=== PATIENT | female | born 1950 | race Caucasian/White ===

== ENCOUNTER 2016-10-21 12:49 | Emergency (ER) | payer SELFPAY ==
[~2016-10-21] VITALS: Ht 154.9 cm; Wt 54.0 kg
[~2016-10-21 12:49] MED LIST: AMLO10TA2 PO; CEPH-460 PO; CLON0.2T PO; ENAL20TA PO; METO100T PO; MINO2.5T PO; OMEP40CA2 PO; PYRI200T4 PO
[2016-10-21 12:51] VITALS: BP 144/77; PULSE 55; RESP 12; TEMP 97.8; O2SAT 93
== END 2016-10-21 18:30 | disposition left against medical advice (07) ==
LOC: NED 12:49
DX: R68.89 Other general symptoms and signs (principal)
CPT/HCPCS: 99281

== ENCOUNTER 2016-11-19 19:16 | Emergency (ER) | payer SELFPAY ==
[~2016-11-19] VITALS: Ht 154.9 cm; Wt 58.6 kg
[2016-11-19 19:28] VITALS: BP 187/104; PULSE 58; RESP 16; TEMP 98.6; O2SAT 95
[2016-11-19 19:51] VITALS: BP 187/104; PULSE 58; RESP 16; TEMP 98.6; O2SAT 95
--- NOTE | 2016-11-19 20:17 | PD ---
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 The patient states that her catheters only fallen out once in the last year and a half. She will only except a 12 Malaysian catheter, she does not want a larger size and less we do not have a 12 Malaysian catheter available. A review of records reveals her catheter has fallen out approximately 5 times in the last 2 years. She has had other problems such as catheter replacement and catheter pain during those 2 years. PFSH Past Medical History Hx Anticoagulant Therapy: No Arthritis: Yes (RA) Blood Disorders: No Anxiety: No Depression: No Heart Rhythm Problems: No Cancer: Yes (LEFT BREAST) Cardiovascular Problems: No High Cholesterol: No Chemotherapy: No Chest Pain: Yes Congestive Heart Failure: No Cerebrovascular Accident: No Diabetes: No Diminished Hearing: No Diverticulitis: Yes Endocrine: No Genitourinary: Yes (KIDNEY) Headaches: No Hypertension: Yes Immune Disorder: No Musculoskeletal: Yes Neurologic: No Psychiatric: No Respiratory: No Immunizations Current: Yes Thyroid Disease: No Influenza Vaccination: No ?: Not Menopausal: Yes : 4 Para: 4 Miscarriage: 0 Tubal Ligation: Yes Past Surgical History Abdominal Surgery: Yes (POLYS REMOVED FROM COLON) AICD: No Cardiac Surgery: No Section: Yes (1984) Ear Surgery: No Endocrine Surgery: No Eye Surgery: No Genitourinary Surgery: Yes (CHAPA WITH LEG BAG) Gynecologic Surgery: Yes (C section ) Hysterectomy: No Joint Replacement: No Neurologic Surgery: No Oral Surgery: No Pacemaker: No Thoracic Surgery: Yes (LEFT BREAST LYMPHNODES REMOVED 2015) Other Surgery: Yes (POLYS REMOVED FROM COLON) Social History Alcohol Use: No Tobacco Use: Yes Substance Use: No Allergies-Medications (Allergen,Severity, Reaction): Coded Allergies: Tetracycline (Verified Allergy, Severe, severe nausea and vomiting, 10/21/16 ) Erythromycin (Verified Allergy, Intermediate, Nausea/Vomiting, 10/21/16) Uncoded Allergies: steroids (Allergy, Unknown, 02/28/16) Reported Meds & Prescriptions Reported Meds & Active Scripts Active Pyridium (Phenazopyridine HCl) 200 Mg Tab 200 Mg PO Q8H PRN Keflex (Cephalexin) 500 Mg Cap 500 Mg PO Q12H 10 Days Reported Metoprolol Tartrate 100 Mg Tab 100 Mg PO BID Enalapril (Enalapril Maleate) 20 Mg Tab 20 Mg PO BID Minoxidil 2.5 Mg Tab 2.5 Mg PO DAILY Clonidine (Clonidine HCl) 0.2 Mg Tab 0.2 Mg PO TID Amlodipine (Amlodipine Besylate) 10 Mg Tab 10 Mg PO DAILY Omeprazole 40 Mg Cap 40 Mg PO DAILY Review of Systems Except as stated in HPI: all other systems reviewed are Neg Physical Exam Narrative GENERAL: Well-nourished, well-developed patient in slight apparent distress with her bladder distention. Her vital signs show blood pressure 187/104 and heart rate 58 but otherwise normal. SKIN: Warm and dry. HEAD: Normocephalic. EYES: No scleral icterus. No injection or drainage. NECK: Supple, trachea midline. No JVD or lymphadenopathy. CARDIOVASCULAR: Regular rate and rhythm without murmurs, gallops, or rubs. RESPIRATORY: Breath sounds equal bilaterally. No accessory muscle use. GASTROINTESTINAL: Abdomen soft, with slight distention over the bladder but otherwise the abdomen is nondistended. No guarding or rebound is present. MUSCULOSKELETAL: No cyanosis, or edema. BACK: Nontender without obvious deformity. No CVA tenderness. Data Data Last Documented VS Vital Signs Date Time Temp Pulse Resp B/P Pulse Ox O2 Delivery O2 Flow Rate FiO2 11/19/16 19:51 98.6 58 16 187/104 95 MDM Medical Decision Making Medical Screen Exam Complete: Yes Emergency Medical Condition: Yes Medical Record Reviewed: Yes Differential Diagnosis Chapa catheter fell out and needs to be replaced. Catheter size too small, intentional removal of Chapa catheter for attention seeking Narrative Course We try to find a 12 Malaysian Chapa catheter but we were unable to find one. We found a 14 Malaysian Chapa catheter. If the patient finds this too uncomfortable she should go to [facility] where they do have 12 Malaysian Chapa catheters. The patient has been here 5 times with the same story of straining for bowel movement. She does not want a larger catheter if she can help but because they are painful. The catheter size is probably too small. We tried to find a 12 Malaysian catheter but none were available here. If she finds this catheter too uncomfortable, she should go to [facility] where they do have size 12 catheters. Diagnosis Primary Impression: Encounter for replacement of urinary catheter Additional Instructions: If this size 14 catheter is too large, go to [facility] where they have size 12 Chapa catheters. Disposition: 01 DISCHARGE HOME Condition: Stable Ranjith Rizzo MD Nov 19, 2016 20:17
[2016-11-19 20:58] VITALS: BP 212/126
[2016-11-19 21:22] LABS: BLOOD, URINE TRACE (NEG); GLUCOSE,URINE NEG (NEG); KETONE, URINE NEG (NEG); PH, URINE 7.5 (5.0-8.5)
[2016-11-19 21:37] LABS: NITRITE,URINE POS (NEG)
[2016-11-19 21:49] LABS: URINE COLOR YELLOW (YELLW/STRAW)
[2016-11-19 21:52] LABS: COMMENT (UR) CULT NOT INDICATED; CULTURE IF INDICATED CULT NOT INDICATED; RBC, URINE 0-3 /hpf (0-3); SQUAMOUS EPITHELIAL CELL URINE 0-5 /hpf (0-5); WBC, URINE 0-2 /hpf (0-5)
== END 2016-11-19 22:35 | disposition home or self-care (01) ==
LOC: PHED 19:16
DX: Z46.82 Encounter for fitting and adjustment of non-vascular catheter (principal); I10 Essential (primary) hypertension; F17.210 Nicotine dependence, cigarettes, uncomplicated
CPT/HCPCS: 51702; 81001

== ENCOUNTER 2016-11-25 07:42 | Emergency (ER) | payer SELFPAY ==
[~2016-11-25] VITALS: Ht 154.9 cm; Wt 55.0 kg
[~2016-11-25 07:42] MED LIST changes: -CEPH-460 PO
[2016-11-25 07:45] VITALS: BP 198/82; PULSE 92; RESP 17; TEMP 97.6; O2SAT 97
--- NOTE | 2016-11-25 08:13 | PD ---
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 The patient has a history of urinary retention and has a chronic indwelling Chapa catheter that is attached leg bag. The patient is followed by her urologist, Dr. Yee, and was advised to have a suprapubic catheter placed. However, the patient continues to have a Chapa catheter inserted through the urethra, states she has a size 14 Chapa catheter now and when she had a bowel movement earlier today she had some irritation. The patient does state she's had a Chapa catheter "fall out "approximately 5 times over the last 2 years during bowel movements when she is constipated. The patient states she has small amount of bleeding from around the urethral site while wiping earlier today. She does complain of pain at the Chapa catheter site. However, she does note the Chapa catheter continues to drain, but is requesting the Chapa catheter be placed and is requesting pain medications. PFSH Past Medical History Hx Anticoagulant Therapy: No Arthritis: Yes (RA) Blood Disorders: No Anxiety: No Depression: No Heart Rhythm Problems: No Cancer: Yes (LEFT BREAST) Cardiovascular Problems: Yes High Cholesterol: No Chemotherapy: No Chest Pain: Yes Congestive Heart Failure: No Cerebrovascular Accident: No Diabetes: No Diminished Hearing: No Diverticulitis: Yes Endocrine: No Genitourinary: Yes (KIDNEY) Headaches: No Hypertension: Yes Immune Disorder: No Musculoskeletal: Yes Neurologic: No Psychiatric: No Respiratory: No Immunizations Current: Yes Thyroid Disease: No ?: Not Menopausal: Yes : 4 Para: 4 Miscarriage: 0 Tubal Ligation: Yes Past Surgical History Abdominal Surgery: Yes (POLYS REMOVED FROM COLON) AICD: No Cardiac Surgery: No Section: Yes (1984) Ear Surgery: No Endocrine Surgery: No Eye Surgery: No Genitourinary Surgery: Yes (CHAPA WITH LEG BAG) Gynecologic Surgery: Yes (C section ) Hysterectomy: No Joint Replacement: No Neurologic Surgery: No Oral Surgery: No Pacemaker: No Thoracic Surgery: Yes (LEFT BREAST LYMPHNODES REMOVED 2015) Other Surgery: Yes (POLYS REMOVED FROM COLON) Social History Alcohol Use: No Tobacco Use: Yes Substance Use: No Allergies-Medications (Allergen,Severity, Reaction): Coded Allergies: Tetracycline (Verified Allergy, Severe, severe nausea and vomiting, ) Erythromycin (Verified Allergy, Intermediate, Nausea/Vomiting, 11/25/16) Uncoded Allergies: steroids (Allergy, Unknown, 02/28/16) Reported Meds & Prescriptions Reported Meds & Active Scripts Active Pyridium (Phenazopyridine HCl) 200 Mg Tab 200 Mg PO Q8H PRN Reported Metoprolol Tartrate 100 Mg Tab 100 Mg PO BID Enalapril (Enalapril Maleate) 20 Mg Tab 20 Mg PO BID Minoxidil 2.5 Mg Tab 2.5 Mg PO DAILY Clonidine (Clonidine HCl) 0.2 Mg Tab 0.2 Mg PO TID Amlodipine (Amlodipine Besylate) 10 Mg Tab 10 Mg PO DAILY Omeprazole 40 Mg Cap 40 Mg PO DAILY Review of Systems Except as stated in HPI: all other systems reviewed are Neg General / Constitutional: No: Fever Gastrointestinal: No: Nausea, Vomiting, Abdominal Pain Genitourinary: Positive: Other (as noted in history of present illness) Skin: No Rash, No Itching Physical Exam Narrative GENERAL: Awake, alert, nontoxic-appearing 66-year-old female who appears her stated age and is in no acute respiratory distress. The patient is lying supine with no distress. SKIN: Warm and dry. HEAD: Atraumatic. Normocephalic. EYES: No injection or drainage. ENT: No nasal bleeding or discharge. Mucous membranes pink and moist. NECK: Trachea midline. No JVD. GASTROINTESTINAL: Abdomen soft, non-tender, nondistended. No rebound tenderness. Genitourinary: The exam was performed in the presence of a female nurse, Jennifer. Chapa catheter is in place, there is no visible bleeding from around the urethral site. MUSCULOSKELETAL: No obvious deformities. No clubbing. No cyanosis. No edema. NEUROLOGICAL: Awake and alert. No obvious cranial nerve deficits. Motor grossly within normal limits. Normal speech. PSYCHIATRIC: Appropriate mood and affect; insight and judgment normal. Data Data Last Documented VS Vital Signs Date Time Temp Pulse Resp B/P Pulse Ox O2 Delivery O2 Flow Rate FiO2 11/25/16 07:45 97.6 92 17 198/82 97 Orders Urinary Catheter - Remove (11/25/16 08:05) Urinary Catheter Insert/Apply (11/25/16 08:05) Urinalysis - C+S If Indicated (11/25/16 08:05) Acetamin-Hydrocod 325-5 Mg ([place] 5-325 (11/25/16 08:15) Urine Culture (11/25/16 08:53) Labs Laboratory Tests Test 11/25/16 08:53 Urine Color YELLOW Urine Turbidity HAZY Urine pH 6.5 Urine Specific [place] 1.013 Urine Protein NEG mg/dL Urine Glucose (UA) NEG mg/dL Urine Ketones NEG mg/dL Urine Occult Blood TRACE Urine Nitrite NEG Urine Bilirubin NEG Urine Urobilinogen LESS THAN 2.0 MG/DL Urine Leukocyte Esterase LARGE Urine RBC 14 /hpf Urine WBC 12 /hpf Urine Squamous Epithelial 4 /hpf Cells Urine Transitional Epithelial <1 /hpf Cells Urine Bacteria RARE /hpf Urine Mucus FEW /lpf Microscopic Urinalysis Comment CATH-CULTURE IND [facility] Medical Decision Making Medical Screen Exam Complete: Yes Emergency Medical Condition: Yes Medical Record Reviewed: Yes Interpretation(s) Laboratory Tests Test 11/25/16 08:53 Urine Color YELLOW Urine Turbidity HAZY Urine pH 6.5 Urine Specific [place] 1.013 Urine Protein NEG mg/dL Urine Glucose (UA) NEG mg/dL Urine Ketones NEG mg/dL Urine Occult Blood TRACE Urine Nitrite NEG Urine Bilirubin NEG Urine Urobilinogen LESS THAN 2.0 MG/DL Urine Leukocyte Esterase LARGE Urine RBC 14 /hpf Urine WBC 12 /hpf Urine Squamous Epithelial 4 /hpf Cells Urine Transitional Epithelial <1 /hpf Cells Urine Bacteria RARE /hpf Urine Mucus FEW /lpf Microscopic Urinalysis Comment CATH-CULTURE IND Differential Diagnosis Differential diagnosis includes Chapa catheter malfunction, bladder prolapse, chronic urinary retention, UTI. Narrative Course The patient's Chapa catheter was removed and replaced with a size 14 Chapa catheter. The patient was administered [place] 5 mg/325 mg 2 for pain. UA was sent to lab from new Chapa catheter. The patient's UA has RBCs and WBCs with bacteria, therefore, culture indicated. The patient will be placed on Bactrim. The patient is advised to follow-up with her urologist. Return if symptoms worsen or progress. Diagnosis Primary Impression: Malfunction of Chapa catheter Qualified Code: T83.011A - Malfunction of Chapa catheter, initial encounter Additional Impression: Cystitis Patient Instructions: General Instructions Additional Instructions: Medications as directed. Follow-up with your primary physician and/or urologist. Return if symptoms worsen or progress. Med/Other Pt SpecificInfo: Prescription(s) given Scripts Hydrocodone-Acetaminophen ([place])5-325 mg Tab1 Tab PO Q6H PRN (PAIN) #12 TAB Ref 0 Prov:Jerry Barry MD 11/25/16 Sulfamethoxazole-Trimethoprim (Bactrim DS)800-160 Mg Tab1 Tab PO BID #14 TAB Ref 0 Prov:Jerry Barry MD 11/25/16 Disposition: 01 DISCHARGE HOME Condition: Stable Jerry Barry MD Nov 25, 2016 08:13
[2016-11-25] MEDS ORDERED: ACETAMINOPHEN/HYDROcodone 325 MG/5 MG TAB PO ONE (08:15)
[2016-11-25 09:15] LABS: BACTERIA, URINE RARE /hpf; BLOOD, URINE TRACE (NEG); GLUCOSE,URINE NEG (NEG); KETONE, URINE NEG (NEG); MUCUS URINE FEW /lpf (OCC); NITRITE,URINE NEG (NEG); PH, URINE 6.5 (5.0-8.5); SQUAMOUS EPITHELIAL CELL URINE 4 /hpf (0-5); TRANSITIONAL EPI CELLS, URINE <1 /hpf; URINE COLOR YELLOW (YELLW/STRAW)
[2016-11-25 09:17] LABS: COMMENT (UR) CATH-CULTURE IND; CULTURE IF INDICATED CATH CULTURE IND
[2016-11-25] MEDS ORDERED: NORC5TAB PO (09:20)
[2016-11-25] MEDS ORDERED: BACT800T5 PO (09:20)
[2016-11-25] MEDS ORDERED: CEPH-460 PO (09:23)
== END 2016-11-25 10:26 | disposition home or self-care (01) ==
LOC: NEPC 07:42
DX: T83.091A Other mechanical complication of indwelling urethral catheter, initial encounter (principal); N30.80 Other cystitis without hematuria; B96.89 Other specified bacterial agents as the cause of diseases classified elsewhere; I10 Essential (primary) hypertension
CPT/HCPCS: 51702; 81001; 87077; 87086; 87186

== ENCOUNTER 2017-02-01 10:26 | Emergency (ER) | payer SELFPAY ==
[~2017-02-01] VITALS: Ht 154.9 cm; Wt 54.5 kg
[~2017-02-01 10:26] MED LIST changes: +BACT800T5 PO; +CEPH-460 PO; +NORC5TAB PO
[2017-02-01 10:28] VITALS: BP 160/76; PULSE 50; RESP 24; TEMP 97.9; O2SAT 96
[2017-02-01] MEDS ORDERED: ACETAMINOPHEN/HYDROcodone 325 MG/5 MG TAB PO ONE (10:45)
--- NOTE | 2017-02-01 10:48 | PD ---
HPI Chief Complaint: Medical Clearance Time Seen by Provider: 10:41 Travel History International Travel<30 days: No Contact w/Intl Traveler<30days: No Traveled to known affect area: No History of Present Illness HPI 66-year-old female here for Chapa catheter evaluation. The patient reports that she believes her catheter is blocked, and has not put out urine in the last 4-5 hours. She has history of urinary retention has a chronic indwelling Chapa catheter/leg bag. She is complaining of suprapubic abdominal discomfort. She states that this has happened several times in the past and is requesting that we change her Chapa. PFSH Past Medical History Hx Anticoagulant Therapy: No Arthritis: Yes (RA) Blood Disorders: No Anxiety: No Depression: No Heart Rhythm Problems: No Cancer: Yes (LEFT BREAST) Cardiovascular Problems: Yes (HTN) High Cholesterol: No Chemotherapy: Yes Chest Pain: Yes Congestive Heart Failure: No Cerebrovascular Accident: No Diabetes: No Diminished Hearing: No Diverticulitis: Yes Endocrine: No Genitourinary: Yes (KIDNEY, NOT ABLE TO URINATE) Headaches: No Hypertension: Yes Immune Disorder: No Musculoskeletal: Yes Neurologic: No Psychiatric: No Respiratory: No Immunizations Current: Yes Thyroid Disease: No Menopausal: Yes : 4 Para: 4 Miscarriage: 0 Tubal Ligation: Yes Past Surgical History Abdominal Surgery: Yes (POLYS REMOVED FROM COLON) AICD: No Cardiac Surgery: No Section: Yes (1984) Ear Surgery: No Endocrine Surgery: No Eye Surgery: No Genitourinary Surgery: Yes (CHAPA WITH LEG BAG) Gynecologic Surgery: Yes (C section ) Hysterectomy: No Joint Replacement: No Neurologic Surgery: No Oral Surgery: No Pacemaker: No Thoracic Surgery: Yes (LEFT BREAST LYMPHNODES REMOVED 2015) Other Surgery: Yes (POLYS REMOVED FROM COLON, PORT PLACEMENT ) Social History Alcohol Use: No Tobacco Use: Yes Substance Use: No Allergies-Medications (Allergen,Severity, Reaction): Coded Allergies: Tetracycline (Verified Adverse Reaction, Severe, severe nausea and vomiting, 02/01/17) Erythromycin (Verified Adverse Reaction, Intermediate, Nausea/Vomiting, ) Uncoded Allergies: steroids (Allergy, Unknown, 02/28/16) Reported Meds & Prescriptions Reported Meds & Active Scripts Active Pyridium (Phenazopyridine HCl) 200 Mg Tab 200 Mg PO Q8H PRN Reported Metoprolol Tartrate 100 Mg Tab 100 Mg PO BID Enalapril (Enalapril Maleate) 20 Mg Tab 20 Mg PO BID Minoxidil 2.5 Mg Tab 2.5 Mg PO DAILY Clonidine (Clonidine HCl) 0.2 Mg Tab 0.2 Mg PO TID Amlodipine (Amlodipine Besylate) 10 Mg Tab 10 Mg PO DAILY Omeprazole 40 Mg Cap 40 Mg PO DAILY Review of Systems Except as stated in HPI: all other systems reviewed are Neg Physical Exam Narrative GENERAL: Well-developed, well-nourished, moderate distress secondary to pain. SKIN: Focused skin assessment warm/dry. HEAD: Atraumatic. Normocephalic. EYES: Pupils equal and round. No scleral icterus. No injection or drainage. ENT: Mucous membranes pink and moist. CARDIOVASCULAR: Regular rate and rhythm. RESPIRATORY: No accessory muscle use. Clear to auscultation. Breath sounds equal bilaterally. GASTROINTESTINAL: Abdomen soft, nondistended. Palpable distended bladder with suprapubic tenderness. No peritoneal signs. MUSCULOSKELETAL: No obvious deformities. No clubbing. No cyanosis. No edema. NEUROLOGICAL: Awake and alert. No obvious cranial nerve deficits. Motor grossly within normal limits. Normal speech. PSYCHIATRIC: Appropriate mood and affect; insight and judgment normal. Data Data Last Documented VS Vital Signs Date Time Temp Pulse Resp B/P Pulse Ox O2 Delivery O2 Flow Rate FiO2 02/01/17 10:28 97.9 50 24 160/76 96 Room Air Orders Urinary Catheter - Remove (02/01/17 10:45) Urinary Catheter Insert/Apply (02/01/17 10:45) Acetamin-Hydrocod 325-5 Mg ([place] 5-325 (02/01/17 10:45) Urinalysis - C+S If Indicated (02/01/17 11:02) [facility] Medical Decision Making Medical Screen Exam Complete: Yes Emergency Medical Condition: Yes Differential Diagnosis Chapa catheter obstruction, UTI Narrative Course Chapa catheter placed with over 400 cc of clear urine output. Patient experienced immediate relief of symptoms, and is very thankful. She tells me that she has a burning sensation in her bladder and believe she may have an infection. Chart review shows that the last time the patient was here her urine grew out Enterobacter aerogenes that was sensitive to Cipro. I will start her on Cipro today. PMD/urology follow-up this week. She is stable for discharge home. She was informed on when to return to the emergency department. She verbalizes understanding and agreement with plan. Diagnosis Primary Impression: Malfunction of Chapa catheter Qualified Code: T83.011A - Malfunction of Chapa catheter, initial encounter Referrals: Primary Care Physician 3 days Urologist 3 days Additional Instructions: Follow-up with your primary care physician this week. Follow-up with your urologist this week. Return to the emergency department for worsening symptoms or any other concerns. Scripts Ciprofloxacin (Cipro)500 Mg Tcf044 Mg PO BID 7 Days Ref 0 Prov:Darvin Barreto MD 02/01/17 Disposition: DISCHARGE HOME Condition: Stable Darvin Barreto MD February 01, 2017 10:48
[2017-02-01] MEDS ORDERED: CIPR-9 PO (11:10)
[2017-02-01 11:14] VITALS: BP 150/77; TEMP 97.8
[2017-02-01 11:25] LABS: BLOOD, URINE NEG (NEG); GLUCOSE,URINE NEG (NEG); KETONE, URINE NEG (NEG); MUCUS URINE FEW /lpf (OCC); NITRITE,URINE NEG (NEG); PH, URINE 7.5 (5.0-8.5); SQUAMOUS EPITHELIAL CELL URINE <1 /hpf (0-5); TRANSITIONAL EPI CELLS, URINE <1 /hpf; URINE COLOR YELLOW (YELLW/STRAW)
[2017-02-01 11:26] LABS: COMMENT (UR) CULT NOT INDICATED; CULTURE IF INDICATED CULT NOT INDICATED
== END 2017-02-01 11:14 | disposition home or self-care (01) ==
LOC: NEPD 10:26
DX: T83.011A Breakdown (mechanical) of indwelling urethral catheter, initial encounter (principal); I10 Essential (primary) hypertension; M06.9 Rheumatoid arthritis, unspecified
CPT/HCPCS: 51702; 81001

== ENCOUNTER 2017-02-01 22:17 | Emergency (ER) | payer SELFPAY ==
[~2017-02-01 22:17] MED LIST changes: +CIPR-9 PO
[2017-02-01 22:18] VITALS: BP 183/84; PULSE 58; RESP 18; TEMP 98; O2SAT 98
--- NOTE | 2017-02-02 00:47 | PD ---
HPI Chief Complaint: Complaint Time Seen by Provider: 00:46 Travel History International Travel<30 days: No Contact w/Intl Traveler<30days: No Traveled to known affect area: No History of Present Illness HPI 66-year-old female with history of long-term indwelling Chapa catheter, presents today for Chapa catheter placement. Patient was seen earlier today and her Chapa catheter was changed. She was started on oral antibiotic for UTI. Patient states when she got home she believes the Chapa was too tight and she moved incorrectly, pulling the Chapa catheter out. The balloon was not inflated on the distal aspect of the tube. Patient denies any pain. States she had a small amount of blood from her urethra when this happened. She has no other symptoms to report this time. PFSH Past Medical History Hx Anticoagulant Therapy: No Arthritis: Yes (RA) Blood Disorders: No Anxiety: No Depression: No Heart Rhythm Problems: No Cancer: Yes (LEFT BREAST) Cardiovascular Problems: Yes (htn) High Cholesterol: No Chemotherapy: Yes Chest Pain: Yes Congestive Heart Failure: No Cerebrovascular Accident: No Diabetes: No Diminished Hearing: No Diverticulitis: Yes Endocrine: No Genitourinary: Yes (KIDNEY, NOT ABLE TO URINATE) Headaches: No Hypertension: Yes Immune Disorder: No Musculoskeletal: Yes Neurologic: No Psychiatric: No Respiratory: No Immunizations Current: Yes Thyroid Disease: No ?: Not Menopausal: Yes : 4 Para: 4 Miscarriage: 0 Tubal Ligation: Yes Past Surgical History Abdominal Surgery: Yes (POLYS REMOVED FROM COLON) AICD: No Cardiac Surgery: No Section: Yes (1984) Ear Surgery: No Endocrine Surgery: No Eye Surgery: No Genitourinary Surgery: Yes (CHAPA WITH LEG BAG) Gynecologic Surgery: Yes (C section ) Hysterectomy: No Joint Replacement: No Neurologic Surgery: No Oral Surgery: No Pacemaker: No Thoracic Surgery: Yes (LEFT BREAST LYMPHNODES REMOVED 2015) Other Surgery: Yes (POLYS REMOVED FROM COLON, PORT PLACEMENT ) Social History Alcohol Use: No Tobacco Use: Yes (OCASSIONALLY ) Substance Use: No Allergies-Medications (Allergen,Severity, Reaction): Coded Allergies: Tetracycline (Verified Adverse Reaction, Severe, severe nausea and vomiting, 02/01/17) Erythromycin (Verified Adverse Reaction, Intermediate, Nausea/Vomiting, ) Uncoded Allergies: steroids (Allergy, Unknown, 02/28/16) Reported Meds & Prescriptions Reported Meds & Active Scripts Active Cipro (Ciprofloxacin HCl) 500 Mg Tab 500 Mg PO BID 7 Days Pyridium (Phenazopyridine HCl) 200 Mg Tab 200 Mg PO Q8H PRN Reported Metoprolol Tartrate 100 Mg Tab 100 Mg PO BID Enalapril (Enalapril Maleate) 20 Mg Tab 20 Mg PO BID Minoxidil 2.5 Mg Tab 2.5 Mg PO DAILY Clonidine (Clonidine HCl) 0.2 Mg Tab 0.2 Mg PO TID Amlodipine (Amlodipine Besylate) 10 Mg Tab 10 Mg PO DAILY Omeprazole 40 Mg Cap 40 Mg PO DAILY Review of Systems Except as stated in HPI: all other systems reviewed are Neg Physical Exam Narrative GENERAL: Well-nourished, well-developed female patient in acute distress SKIN: Focused skin assessment warm/dry. HEAD: Normocephalic. EYES: No scleral icterus. No injection or drainage. NECK: Supple, trachea midline. No JVD or lymphadenopathy. CARDIOVASCULAR: Regular rate and rhythm without murmurs, gallops, or rubs. RESPIRATORY: Breath sounds equal bilaterally. No accessory muscle use. GASTROINTESTINAL: Abdomen soft, non-tender, nondistended. MUSCULOSKELETAL: No cyanosis, or edema. BACK: Nontender without obvious deformity. No CVA tenderness. Data Data Last Documented VS Vital Signs Date Time Temp Pulse Resp B/P Pulse Ox O2 Delivery O2 Flow Rate FiO2 02/01/17 22:18 98.0 58 18 183/84 98 Room Air Orders Urinary Catheter Management [id number] (02/02/17 00:34) MDM Medical Decision Making Medical Screen Exam Complete: Yes Emergency Medical Condition: Yes Medical Record Reviewed: Yes Differential Diagnosis Urinary retention versus obstruction versus malfunctioning Chapa catheter Narrative Course 66 year female presents to emergency department for a Chapa catheter to be placed. Patient appears without distress. Abrasion was already seen earlier today, trachea and is undergoing treatment for UTI. A new catheter is placed and patient states that she has follow-up with Dr. Baker, her urologist. She agrees to return immediately with any acute worsening of symptoms. Diagnosis Primary Impression: Malfunction of Chapa catheter Qualified Code: T83.011D - Malfunction of Chapa catheter, subsequent encounter Additional Impression: Urine retention Referrals: Vinay Baker DO Patient Instructions: Chapa Catheter Placement and Care (ED), General Instructions Additional Instructions: Follow-up with Dr. Baker Continue medication as prescribed and her previous visit today. Return immediately with any acute worsening of symptoms Med/Other Pt SpecificInfo: No Change to Meds Disposition: 01 DISCHARGE HOME Condition: Stable Myrna Montalvo February 02, 2017 00:47
== END 2017-02-02 01:37 | disposition home or self-care (01) ==
LOC: NEPK 22:17
DX: T83.011D Breakdown (mechanical) of indwelling urethral catheter, subsequent encounter (principal); R33.9 Retention of urine, unspecified; N39.0 Urinary tract infection, site not specified
CPT/HCPCS: 51702

== ENCOUNTER 2017-02-16 19:00 | Emergency (ER) | payer SELFPAY ==
[~2017-02-16] VITALS: Ht 167.6 cm; Wt 66.0 kg
[~2017-02-16 19:00] MED LIST changes: -BACT800T5 PO; -CEPH-460 PO; -NORC5TAB PO
[2017-02-16 19:05] VITALS: BP 145/66; PULSE 55; RESP 16; TEMP 98.4; O2SAT 98
--- NOTE | 2017-02-16 21:57 | PD ---
HPI Chief Complaint: Complaint Time Seen by Provider: 21:46 Travel History International Travel<30 days: No Contact w/Intl Traveler<30days: No Traveled to known affect area: No History of Present Illness HPI The patient is a 66 year old female who presents to the [facility] emergency department with a history of difficulty urinating for the last 5 hours. The patient has a chronic indwelling Chapa catheter that is been in place for a partially 2 years related to urinary retention. She reports that she is followed by Dr. Yee for this. He has recommended suprapubic catheter placement, however the patient reports that she is waiting until she is approved for Medicare. The patient reports that she has since yesterday been experiencing dysuria with irritation around the urethra. She reports that yesterday she noted some bleeding around the urethra. She is concerned that she may have a urinary tract infection. Incidentally on review of systems she does report that she's had diarrhea for the last 2 weeks. She reports that she intermittently will have diarrhea sometimes up to 7 times per day. She denies having any blood in her stool or mucus in her stool. The patient denies any recent fevers, cough, congestion, neck pain, chest pain, shortness of breath, vomiting, or neurologic symptoms. PFSH Past Medical History Narrative Medical The patient's past medical history is significant for urinary retention, rheumatoid arthritis, history of left breast cancer, hypertension, diverticulitis. Hx Anticoagulant Therapy: No Arthritis: Yes (RA) Blood Disorders: No Anxiety: No Depression: No Heart Rhythm Problems: No Cancer: Yes (LEFT BREAST) Cardiovascular Problems: Yes (htn) High Cholesterol: No Chemotherapy: Yes Chest Pain: Yes Congestive Heart Failure: No Cerebrovascular Accident: No Diabetes: No Diminished Hearing: No Diverticulitis: Yes Endocrine: No Genitourinary: Yes (KIDNEY, NOT ABLE TO URINATE) Headaches: No Hypertension: Yes Immune Disorder: No Medical other: No Musculoskeletal: Yes Neurologic: No Psychiatric: No Respiratory: No Immunizations Current: Yes Thyroid Disease: No ?: Not Menopausal: Yes : 4 Para: 4 Miscarriage: 0 Tubal Ligation: Yes Past Surgical History Narrative Surgical The patient's past surgical history significant for polyps being removed from her colon, , left breast lymph nodes resection, Uufhfs-a-Lyhn placement. Abdominal Surgery: Yes (POLYS REMOVED FROM COLON) AICD: No Cardiac Surgery: No Section: Yes (1984) Ear Surgery: No Endocrine Surgery: No Eye Surgery: No Genitourinary Surgery: Yes (CHAPA WITH LEG BAG) Gynecologic Surgery: Yes (C section ) Hysterectomy: No Joint Replacement: No Neurologic Surgery: No Oral Surgery: No Pacemaker: No Thoracic Surgery: Yes (LEFT BREAST LYMPHNODES REMOVED 2015) Other Surgery: Yes (POLYS REMOVED FROM COLON, PORT PLACEMENT ) Social History Alcohol Use: No Tobacco Use: Yes (four cigarettes per day) Substance Use: No Allergies-Medications (Allergen,Severity, Reaction): Coded Allergies: Tetracycline (Verified Adverse Reaction, Severe, severe nausea and vomiting, 02/01/17) Erythromycin (Verified Adverse Reaction, Intermediate, Nausea/Vomiting, ) Uncoded Allergies: steroids (Allergy, Unknown, 02/28/16) Reported Meds & Prescriptions Reported Meds & Active Scripts Active Cipro (Ciprofloxacin HCl) 500 Mg Tab 500 Mg PO BID 7 Days Pyridium (Phenazopyridine HCl) 200 Mg Tab 200 Mg PO Q8H PRN Reported Metoprolol Tartrate 100 Mg Tab 100 Mg PO BID Enalapril (Enalapril Maleate) 20 Mg Tab 20 Mg PO BID Minoxidil 2.5 Mg Tab 2.5 Mg PO DAILY Clonidine (Clonidine HCl) 0.2 Mg Tab 0.2 Mg PO TID Amlodipine (Amlodipine Besylate) 10 Mg Tab 10 Mg PO DAILY Omeprazole 40 Mg Cap 40 Mg PO DAILY Review of Systems Except as stated in HPI: all other systems reviewed are Neg General / Constitutional: No: Fever Eyes: No: Visual changes HENT: No: Headaches Cardiovascular: No: Chest Pain or Discomfort Respiratory: No: Shortness of Breath Gastrointestinal: Positive: Diarrhea, Abdominal Pain (suprapubic pressure), Changes in Bowel Habits, No: Nausea, Vomiting, Hematochezia, Constipation, Indigestion, Loss of Appetite Genitourinary: Positive: Urgency, Dysuria, Hematuria, Decreased Urinary Output Musculoskeletal: No: Pain Skin: No Rash Neurologic: No: Weakness Psychiatric: No: Depression Endocrine: No: Polydipsia Hematologic/Lymphatic: No: Easy Bruising Physical Exam Narrative General: The patient is a well-developed well-nourished female in no acute distress. Head and Neck exam: Head is normocephalic atraumatic. Eyes: EOMI, pupils are equal round and reactive to light. Nose: Midline septum with pink mucous membranes Mouth: Dentition unremarkable. Moist mucus membranes. Posterior oropharynx is not erythematous. No tonsillar hypertrophy. Uvula midline. Airway patent. Neck: No palpable lymphadenopathy. No nuchal rigidity. No thyromegaly. Cardiovascular: Regular rate and rhythm without murmurs, gallops, or rubs. Lungs: Clear to auscultation bilaterally. No wheezes, rhonchi, or rales. Abdomen: Soft, with tenderness on palpation in the suprapubic area without any suprapubic prominence noted. No other tenderness on palpation of the other quadrants of the abdomen. No guarding, rebound, or rigidity. Normal bowel sounds are audible. Negative [place] sign. Extremities: No clubbing or cyanosis. The patient has trace pedal edema bilateral lower extremities. 2+ pulses in all 4 extremities. No calf tenderness on palpation. Back: No spinous process tenderness to palpation. No costovertebral angle tenderness to palpation. Neurologic Exam: Grossly nonfocal. Skin Exam: No rash noted. Intact skin that is warm and dry. Data Data Last Documented VS Vital Signs Date Time Temp Pulse Resp B/P Pulse Ox O2 Delivery O2 Flow Rate FiO2 02/16/17 22:46 55 16 140/65 96 02/16/17 19:05 98.4 Room Air Orders Urinary Catheter Insert/Apply (02/16/17 21:49) Complete Blood Count With Diff (02/16/17 21:55) Basic Metabolic Panel (Bmp) (02/16/17 21:55) Urinalysis - C+S If Indicated (02/16/17 21:55) Magnesium (Mg) (02/16/17 21:55) Enteric Path (Stool) (02/16/17 21:55) C Diff Toxin Pcr (02/16/17 21:55) Iv Access Insert/Monitor (02/16/17 21:55) Ecg Monitoring (02/16/17 21:55) Oximetry (02/16/17 21:55) Stool Wbc (Leukocytes) (02/16/17 21:55) Labs Laboratory Tests Test 02/16/17 22:25 Urine Color YELLOW Urine Turbidity HAZY Urine pH 7.5 Urine Specific [place] 1.008 Urine Protein NEG mg/dL Urine Glucose (UA) NEG mg/dL Urine Ketones NEG mg/dL Urine Occult Blood NEG Urine Nitrite NEG Urine Bilirubin NEG Urine Urobilinogen LESS THAN 2.0 MG/DL Urine Leukocyte Esterase TRACE Urine RBC 4 /hpf Urine WBC 4 /hpf Urine Squamous Epithelial 1 /hpf Cells Urine Amorphous Sediment RARE Urine Hyaline Casts 1 /lpf Urine Mucus FEW /lpf Microscopic Urinalysis Comment CULT NOT INDICATED MDM Medical Decision Making Medical Screen Exam Complete: Yes Emergency Medical Condition: Yes Medical Record Reviewed: Yes Differential Diagnosis Urinary retention related to malfunctioning catheter, versus urinary tract infection, versus bladder spasm, versus gastroenteritis, versus C. difficile colitis Narrative Course During the course of the patients emergency department visit, the patients history, examination, and differential diagnosis were reviewed with the patient. The patient had IV access obtained and blood work sent for analysis. The patient was placed on a lunchroom monitor with oximetry and blood pressure monitoring. The patient's Chapa catheter was removed and replaced. The patient was initially agreeable to have laboratory studies done and stool studies done for her diarrhea, however the patient then reported that she took Imodium it would not be able to produce a bowel movement and prefers not to have laboratory studies at this time. The patient will be given an outpatient lab slip for stool studies. The patient's urinalysis showed 4 red blood cells , otherwise unremarkable. No signs of infection. The patient will be given a prescription for Pyridium for discomfort. The patient is instructed regarding the importance of following up with Dr. Yee this week. The patient is resting comfortably and feels better, is alert and in no distress. The patients results and examination findings were discussed with the patient. The repeat examination is unremarkable and benign. The history, exam, diagnostic testing, and current condition do not suggest any significant pathology to warrant further testing, continued ED treatment, admission, or surgical evaluation at this point. The vital signs have been stable. The patient does not have uncontrollable pain, intractable vomiting, or other significant symptoms. The patient's condition is stable and appropriate for discharge. The patient will pursue further outpatient evaluation with a primary care physician or other designated or consulting physician as indicated in the discharge instructions. The patient expressed understanding and was agreeable with this plan. Diagnosis Primary Impression: Malfunction of indwelling urinary catheter Qualified Code: T83.011A - Malfunction of indwelling urinary catheter, initial encounter Additional Impressions: Dysuria Diarrhea Qualified Code: R19.7 - Diarrhea, unspecified type Referrals: Dayne eYe MD 2 days Primary Care Physician 3 days Patient Instructions: Acute Diarrhea (ED), Chapa Catheter Placement and Care ( ED), General Instructions Additional Instructions: The patient is provided an outpatient lab slip for stool studies. Med/Other Pt SpecificInfo: Prescription(s) given Scripts Phenazopyridine (Pyridium)100 Mg Qwc206 Mg PO Q8HR #12 TAB Ref 0 Prov:Nazanin Huertas MD 02/16/17 Disposition: 01 DISCHARGE HOME Condition: Stable Nazanin Huertas MD Feb 16, 2017 21:57
[2017-02-16 22:46] VITALS: BP 140/65; PULSE 55; RESP 16; O2SAT 96
[2017-02-16 22:54] LABS: BLOOD, URINE NEG (NEG); COMMENT (UR) CULT NOT INDICATED; CULTURE IF INDICATED CULT NOT INDICATED; GLUCOSE,URINE NEG (NEG); HYALINE CAST, URINE 1 /lpf (RARE); KETONE, URINE NEG (NEG); MUCUS URINE FEW /lpf (OCC); NITRITE,URINE NEG (NEG); PH, URINE 7.5 (5.0-8.5); SQUAMOUS EPITHELIAL CELL URINE 1 /hpf (0-5); URINE COLOR YELLOW (YELLW/STRAW)
[2017-02-16] MEDS ORDERED: PHEN0.4T PO (22:59)
== END 2017-02-16 23:22 | disposition home or self-care (01) ==
LOC: NEPC 19:00
DX: T83.011A Breakdown (mechanical) of indwelling urethral catheter, initial encounter (principal); R30.0 Dysuria; R19.7 Diarrhea, unspecified
CPT/HCPCS: 51702; 81001

== ENCOUNTER 2017-02-26 22:16 | Emergency (ER) | payer SELFPAY ==
[~2017-02-26 22:16] MED LIST changes: +PHEN0.4T PO
[2017-02-26 22:27] VITALS: BP 141/70; PULSE 48; RESP 16; TEMP 99.1; O2SAT 96
--- NOTE | 2017-02-27 00:04 | PD ---
HPI Chief Complaint: GI Complaint Time Seen by Provider: 23:27 Travel History International Travel<30 days: No Contact w/Intl Traveler<30days: No Traveled to known affect area: No History of Present Illness HPI This is a 66-year-old female who has a chronic indwelling Chapa catheter who presents to the emergency department having had her catheter follow-up. She thinks that her puppy deflated the balloon. She is having no abdominal discomfort, fevers or chills. She just needs her catheter replaced. PFSH Past Medical History Hx Anticoagulant Therapy: No Arthritis: Yes (RA) Blood Disorders: No Anxiety: No Depression: No Heart Rhythm Problems: No Cancer: Yes (LEFT BREAST) Cardiovascular Problems: Yes (htn) High Cholesterol: No Chemotherapy: Yes Chest Pain: Yes Congestive Heart Failure: No Cerebrovascular Accident: No Diabetes: No Diminished Hearing: No Diverticulitis: Yes Endocrine: No Genitourinary: Yes (KIDNEY, NOT ABLE TO URINATE) Headaches: No Hypertension: Yes Immune Disorder: No Musculoskeletal: Yes Neurologic: No Psychiatric: No Respiratory: No Immunizations Current: Yes Thyroid Disease: No Menopausal: Yes : 4 Para: 4 Miscarriage: 0 Tubal Ligation: Yes Past Surgical History Abdominal Surgery: Yes (POLYS REMOVED FROM COLON) AICD: No Cardiac Surgery: No Section: Yes (1984) Ear Surgery: No Endocrine Surgery: No Eye Surgery: No Genitourinary Surgery: Yes (CHAPA WITH LEG BAG) Gynecologic Surgery: Yes (C section ) Hysterectomy: No Joint Replacement: No Neurologic Surgery: No Oral Surgery: No Pacemaker: No Thoracic Surgery: Yes (LEFT BREAST LYMPHNODES REMOVED 2015) Other Surgery: Yes (POLYS REMOVED FROM COLON, PORT PLACEMENT ) Social History Alcohol Use: No Tobacco Use: No (quit) Substance Use: No Allergies-Medications (Allergen,Severity, Reaction): Coded Allergies: Tetracycline (Verified Adverse Reaction, Severe, severe nausea and vomiting, 02/26/17) Erythromycin (Verified Adverse Reaction, Intermediate, Nausea/Vomiting, ) Uncoded Allergies: steroids (Allergy, Unknown, 02/28/16) Reported Meds & Prescriptions Reported Meds & Active Scripts Active Reported Metoprolol Tartrate 100 Mg Tab 100 Mg PO BID Enalapril (Enalapril Maleate) 20 Mg Tab 20 Mg PO BID Minoxidil 2.5 Mg Tab 2.5 Mg PO DAILY Clonidine (Clonidine HCl) 0.2 Mg Tab 0.2 Mg PO TID Amlodipine (Amlodipine Besylate) 10 Mg Tab 10 Mg PO DAILY Omeprazole 40 Mg Cap 40 Mg PO DAILY Review of Systems General / Constitutional: No: Fever, Chills Gastrointestinal: No: Abdominal Pain Physical Exam Narrative GENERAL: Well-appearing, no acute distress, nontoxic SKIN: Warm and dry. HEAD: Atraumatic. Normocephalic. ENT: No nasal bleeding or discharge. Moist mucous membranes MUSCULOSKELETAL: No obvious deformities. NEUROLOGICAL: Awake and alert. No obvious cranial nerve deficits. Motor grossly within normal limits. Normal speech. PSYCHIATRIC: Appropriate mood and affect; insight and judgment normal. Data Data Last Documented VS Vital Signs Date Time Temp Pulse Resp B/P Pulse Ox O2 Delivery O2 Flow Rate FiO2 02/26/17 22:27 99.1 48 16 141/70 96 Room Air Orders Urinary Catheter Insert/Apply (02/26/17 23:27) MDM Medical Decision Making Medical Screen Exam Complete: Yes Emergency Medical Condition: Yes Differential Diagnosis Catheter malfunction Narrative Course This is a 66-year-old female who presents to the emergency department having had her Chapa catheter, out. She has no other complaints. Chapa catheter was replaced and patient was discharged home. Diagnosis Primary Impression: Encounter for replacement of urinary catheter Patient Instructions: General Instructions Additional Instructions: If you develop severe or worsening abdominal pain, fever>100.4, persistent vomiting or inability to eat or drink return to the emergency department immediately. Med/Other Pt SpecificInfo: No Change to Meds Disposition: 01 DISCHARGE HOME Condition: Stable Iqra Michael MD Feb 27, 2017 00:04
== END 2017-02-27 00:22 | disposition home or self-care (01) ==
LOC: NEPE 22:16
DX: Z46.6 Encounter for fitting and adjustment of urinary device (principal); T83.011A Breakdown (mechanical) of indwelling urethral catheter, initial encounter
CPT/HCPCS: 43760; 51702

== ENCOUNTER 2017-04-01 01:44 | Emergency (ER) | payer SELFPAY ==
[~2017-04-01] VITALS: Ht 152.4 cm; Wt 55.0 kg
[~2017-04-01 01:44] MED LIST changes: -CIPR-9 PO; -PHEN0.4T PO; -PYRI200T4 PO
[2017-04-01 01:46] VITALS: BP 197/100; PULSE 65; RESP 16; TEMP 97.7; O2SAT 99
[2017-04-01] MEDS ORDERED: HYDR-3533 PO (03:36)
[2017-04-01 03:41] VITALS: BP 183/87; PULSE 48; O2SAT 98
[2017-04-01 03:43] VITALS: BP 160/75; PULSE 48; RESP 18; O2SAT 98
[2017-04-01 04:48] LABS: AUTOMATED NEUTROPHIL # 5.4 TH/MM3 (1.8-7.7); BASOPHIL # 0.1 TH/MM3 (0-0.2); BASOPHIL % 0.8 % (0.0-2.0); EOSINOPHIL # 0.2 TH/MM3 (0-0.4); EOSINOPHIL % 2.1 % (0.0-4.0); HEMATOCRIT 46.9 % (35.0-46.0); HEMO FLAGS DIFF FINAL; LYMPH % 36.5 % (9.0-44.0); LYMPHOCYTE # 3.7 TH/MM3 (1.0-4.8); MEAN CELL VOLUME 84.9 FL (80.0-100.0); MEAN CORPUSCULAR HEMOGLOBIN 28.5 PG (27.0-34.0); MEAN CORPUSCULAR HGB CONC 33.5 % (32.0-36.0); MONO % 7.7 % (0.0-8.0); NEUT % 52.9 % (16.0-70.0); PLATELET COUNT 199 TH/MM3 (150-450); RED BLOOD COUNT 5.53 MIL/MM3 (4.00-5.30); RED CELL DISTRIBUTION WIDTH 13.6 % (11.6-17.2); WHITE BLOOD COUNT 10.1 TH/MM3 (4.0-11.0)
[2017-04-01 04:48] LABS: BACTERIA, URINE FEW /hpf; BLOOD, URINE NEG (NEG); COMMENT (UR) CULT NOT INDICATED; CULTURE IF INDICATED CULT NOT INDICATED; GLUCOSE,URINE NEG (NEG); KETONE, URINE NEG (NEG); NITRITE,URINE NEG (NEG); SQUAMOUS EPITHELIAL CELL URINE 1 /hpf (0-5); URINE COLOR LIGHT-YELLOW (YELLW/STRAW)
[2017-04-01] MEDS: SODIUM CHLORID 0.9% 500 ML INJ 500 ML IV ONE ×2 (05:11→05:15)
[2017-04-01] MEDS ORDERED: ONDANSETRON HCL 4 MG/2 ML VIAL IV ONE (05:15)
[2017-04-01] MEDS ORDERED: MORPHINE SULFATE 4 MG/ML INJ IV PUSH ONE (05:15)
[2017-04-01] MEDS ORDERED: DICYCLOMINE HCL 20 MG/2 ML VIAL IM ONE (05:45)
--- NOTE | 2017-04-01 05:54 | PD ---
HPI Chief Complaint: GI Complaint Time Seen by Provider: 03:46 Travel History International Travel<30 days: No Contact w/Intl Traveler<30days: No Traveled to known affect area: No History of Present Illness HPI This is a 66-year-old female who presents to the emergency department with 1 week of abdominal cramping, moderate severity, associated with intermittent loose stools and intermittent constipation but no fevers or chills. She says she feels nauseous but she hasn't vomited. She did recently complete antibiotics as she doesn't remember which ones. She also recently had a Chapa catheter discontinued that she had for 3 years for urinary retention. PFSH Past Medical History Hx Anticoagulant Therapy: No Arthritis: Yes (RA) Blood Disorders: No Anxiety: No Depression: No Heart Rhythm Problems: No Cancer: Yes (LEFT BREAST) Cardiovascular Problems: Yes (htn) High Cholesterol: No Chemotherapy: Yes Chest Pain: Yes Congestive Heart Failure: No Cerebrovascular Accident: No Diabetes: No Diminished Hearing: No Diverticulitis: Yes Endocrine: No Genitourinary: Yes (KIDNEY, NOT ABLE TO URINATE) Headaches: No Hypertension: Yes Immune Disorder: No Musculoskeletal: Yes Neurologic: No Psychiatric: No Respiratory: No Immunizations Current: Yes Thyroid Disease: No Menopausal: Yes : 4 Para: 4 Miscarriage: 0 Tubal Ligation: Yes Past Surgical History Abdominal Surgery: Yes (POLYS REMOVED FROM COLON) AICD: No Cardiac Surgery: No Section: Yes (1984) Ear Surgery: No Endocrine Surgery: No Eye Surgery: No Genitourinary Surgery: Yes (CHAPA WITH LEG BAG) Gynecologic Surgery: Yes (C section ) Hysterectomy: No Joint Replacement: No Neurologic Surgery: No Oral Surgery: No Pacemaker: No Thoracic Surgery: Yes (LEFT BREAST LYMPHNODES REMOVED 2015) Other Surgery: Yes (POLYS REMOVED FROM COLON, PORT PLACEMENT ) Social History Alcohol Use: No Tobacco Use: Yes Substance Use: No Allergies-Medications (Allergen,Severity, Reaction): Coded Allergies: Tetracycline (Verified Adverse Reaction, Severe, severe nausea and vomiting, 04/01/17) Erythromycin (Verified Adverse Reaction, Intermediate, Nausea/Vomiting, ) Uncoded Allergies: steroids (Allergy, Unknown, 02/28/16) Reported Meds & Prescriptions Reported Meds & Active Scripts Active Miralax (Polyethylene Glycol 3350) 17 Gm Powd.pack 17 Gm PO DAILY Reported Lortab (Hydrocodone-Acetaminophen) 5-325 Mg Tab 1 Tab PO Q12HR PRN LAST TIME TOOK 0500 03/31/17 Metoprolol Tartrate 100 Mg Tab 100 Mg PO BID Enalapril (Enalapril Maleate) 20 Mg Tab 20 Mg PO BID Minoxidil 2.5 Mg Tab 2.5 Mg PO DAILY Clonidine (Clonidine HCl) 0.2 Mg Tab 0.2 Mg PO TID Amlodipine (Amlodipine Besylate) 10 Mg Tab 10 Mg PO DAILY Omeprazole 40 Mg Cap 40 Mg PO DAILY Review of Systems Except as stated in HPI: all other systems reviewed are Neg Physical Exam Narrative GENERAL:Well appearing, no acute distress SKIN: Focused skin assessment warm and dry. HEAD: Atraumatic. Normocephalic. EYES: Pupils equal and round. No injection or drainage. ENT: Moist mucous membranes NECK: Trachea midline. CARDIOVASCULAR: Regular rate and rhythm. No murmur appreciated. RESPIRATORY: Clear to auscultation. Breath sounds equal bilaterally. GASTROINTESTINAL: Abdomen soft, tender to palpation in the lower abdomen with no rebound or guarding. MUSCULOSKELETAL: No obvious deformities. NEUROLOGICAL: Awake and alert. No obvious cranial nerve deficits. Moving all extremities. PSYCHIATRIC: Appropriate mood and affect; insight and judgment normal. Data Data Last Documented VS Vital Signs Date Time Temp Pulse Resp B/P Pulse Ox O2 Delivery O2 Flow Rate FiO2 04/01/17 03:43 48 18 160/75 98 Room Air 04/01/17 01:46 97.7 Orders Complete Blood Count With Diff (04/01/17 03:49) Comprehensive Metabolic Panel (04/01/17 03:49) ^ Insert Iv (04/01/17 03:49) Ct Abd/Pel W Iv Contrast(Rout) (04/01/17 ) Urinalysis - C+S If Indicated (04/01/17 03:49) Ondansetron Inj (Zofran Inj) (04/01/17 05:15) Morphine Inj (Morphine Inj) (04/01/17 05:15) Sodium Chlorid 0.9% 500 Ml Inj (Ns 500 M (04/01/17 05:15) Dicyclomine Inj (Bentyl Inj) (04/01/17 05:45) Iohexol 350 Inj (Omnipaque 350 Inj) (04/01/17 06:36) Labs Laboratory Tests Test 04/01/17 04/01/17 04/01/17 04:15 04:25 05:21 Urine Color LIGHT-YELLOW Urine Turbidity HAZY Urine pH 8.0 Urine Specific [place] 1.007 Urine Protein NEG mg/dL Urine Glucose (UA) NEG mg/dL Urine Ketones NEG mg/dL Urine Occult Blood NEG Urine Nitrite NEG Urine Bilirubin NEG Urine Urobilinogen LESS THAN 2.0 MG/DL Urine Leukocyte Esterase NEG Urine RBC LESS THAN 1 /hpf Urine WBC 1 /hpf Urine Squamous Epithelial 1 /hpf Cells Urine Bacteria FEW /hpf Microscopic Urinalysis Comment CULT NOT INDICATED White Blood Count 10.1 TH/MM3 Red Blood Count 5.53 MIL/MM3 Hemoglobin 15.7 GM/DL Hematocrit 46.9 % Mean Corpuscular Volume 84.9 FL Mean Corpuscular Hemoglobin 28.5 PG Mean Corpuscular Hemoglobin 33.5 % Concent Red Cell Distribution Width 13.6 % Platelet Count 199 TH/MM3 Mean Platelet Volume 9.6 FL Neutrophils (%) (Auto) 52.9 % Lymphocytes (%) (Auto) 36.5 % Monocytes (%) (Auto) 7.7 % Eosinophils (%) (Auto) 2.1 % Basophils (%) (Auto) 0.8 % Neutrophils # (Auto) 5.4 TH/MM3 Lymphocytes # (Auto) 3.7 TH/MM3 Monocytes # (Auto) 0.8 TH/MM3 Eosinophils # (Auto) 0.2 TH/MM3 Basophils # (Auto) 0.1 TH/MM3 CBC Comment DIFF FINAL Differential Comment Sodium Level 140 MEQ/L Potassium Level 4.0 MEQ/L Chloride Level 105 MEQ/L Carbon Dioxide Level 26.1 MEQ/L Anion Gap 9 MEQ/L Blood Urea Nitrogen 8 MG/DL Creatinine 0.62 MG/DL Estimat Glomerular Filtration 97 ML/MIN Rate Random Glucose 91 MG/DL Calcium Level 9.1 MG/DL Total Bilirubin 0.3 MG/DL Aspartate Amino Transf 15 U/L (AST/SGOT) Alanine Aminotransferase 18 U/L (ALT/SGPT) Alkaline Phosphatase 166 U/L Total Protein 6.9 GM/DL Albumin 3.4 GM/DL [facility] Medical Decision Making Medical Screen Exam Complete: Yes Emergency Medical Condition: Yes Interpretation(s) Afebrile, no tachycardia, hypertensive Hemoconcentration Electrolytes are reassuring Urinalysis: No infection CT abdomen and pelvis: No acute process Differential Diagnosis Diverticulitis, colitis, constipation, bowel obstruction Narrative Course This is a 66-year-old female who presents to the emergency department with lower abdominal cramping and intermittent diarrhea. She is tender in her lower abdomen. Labs were obtained which were reassuring and CT abdomen and pelvis demonstrates some stool in the colon but no obstruction or acute surgical emergency. I think the patient can be discharged with laxatives and follow-up with her primary care physician. Diagnosis Primary Impression: Constipation Qualified Code: K59.00 - Constipation, unspecified constipation type Patient Instructions: General Instructions Additional Instructions: If you develop severe or worsening abdominal pain, fever>100.4, persistent vomiting or inability to eat or drink return to the emergency department immediately. Follow up with your primary care physician in 1-2 days for a check-up. Med/Other Pt SpecificInfo: Prescription(s) given Scripts Dicyclomine (Bentyl)10 Mg Cap10 Mg PO TID PRN (Bowel Management) #20 CAP Ref 0 Prov:Iqra Michael MD 04/01/17 Magnesium Citrate Liq 300 Ml Gbs974 Ml PO ONCE #1 BOTTLE Ref 0 Prov:Iqra Michael MD 04/01/17 Polyethylene Glycol 3350 (Miralax)17 Gm Powd.pack17 Gm PO DAILY #1 BOTTLE Prov:Iqra Michael MD 04/01/17 Disposition: 01 DISCHARGE HOME Condition: Stable Iqra Michael MD Apr 01, 2017 05:54
[2017-04-01 06:07] LABS: ANION GAP 9 MEQ/L (5-15); AST (GOT) 15 U/L (15-37); BICARBONATE 26.1 MEQ/L (21.0-32.0); CHLORIDE 105 MEQ/L (98-107); GLOMERULAR FILTRATION RATE 97 ML/MIN (>89); SODIUM (NA) 140 MEQ/L (136-145)
[2017-04-01 06:11] LABS: ALKALINE PHOSPHATASE 166 U/L (45-117); ALT (GPT) 18 U/L (10-53); BLOOD UREA NITROGEN 8 MG/DL (7-18); TOTAL BILIRUBIN ADULT 0.3 MG/DL (0.2-1.0)
[2017-04-01] MEDS ORDERED: IOHEXOL 350 MG/ML 10 ML VIAL (for RAD DIAG) IV ONE (06:36)
--- NOTE | 2017-04-01 06:53 | RADRPT ---
EXAM DATE/TIME: 04/01/2017 06:28 [place] COMPARISON: CT ABDOMEN & PELVIS W CONTRAST, March 07, 2016, 14:42. INDICATIONS : Abdominal pain, diarrhea and bloating. IV CONTRAST: 80 cc Omnipaque 350 (iohexol) IV ORAL CONTRAST: No oral contrast ingested. RADIATION DOSE: 9.69 CTDIvol (mGy) MEDICAL HISTORY : Inflammatory bowel disease. Diverticulitis. Carcinoma, breast.Diabetes. Hypertension. SURGICAL HISTORY : section. Tubal ligation.Polyps removed from colon. ENCOUNTER: Initial ACUITY: 1 week PAIN SCALE: 8/10 LOCATION: Bilateral lower quadrant TECHNIQUE: Volumetric scanning of the abdomen and pelvis was performed. Using automated exposure control and ad justment of the mA and/or kV according to patient size, radiation dose was kept as low as reasonably achievable to obtain optimal diagnostic quality images. DICOM format image data is available electro nically for review and comparison. FINDINGS: LOWER LUNGS: The visualized lower lungs are clear. LIVER: Homogeneous density without lesion. There is no dilation of the biliary tree. No calcified gallston es. There is some dilatation the common bile that measure 1 cm. This was present in the prior exam of 03/07/2016 without significant change. SPLEEN: Normal size without lesion. PANCREAS: Within normal limits. KIDNEYS: Normal in size and shape. There is no mass, stone or hydronephrosis. ADRENAL GLANDS: Within normal limits. VASCULAR: There is no aortic aneurysm. BOWEL/MESENTERY: The stomach, small bowel, and colon demonstrate no acute abnormality. There is no free intraperitone al air or fluid. The appendix is unremarkable. There is stool in the colon. There is scattered divert iculosis of the descending and sigmoid colon. No inflammatory changes. ABDOMINAL WALL: Within normal limits. RETROPERITONEUM: There is no lymphadenopathy. BLADDER: No wall thickening or mass. REPRODUCTIVE: Within normal limits. INGUINAL: There is no lymphadenopathy or hernia. MUSCULOSKELETAL: Within normal limits for patient age. No significant changes compared to the prior exam. CONCLUSION: 1. Scattered diverticulosis of the descending and sigmoid colon without inflammatory changes. 2. There continues to be some dilatation of the common bile duct measuring at 1 cm. This was present on a prior study from 2015 without significant change. 3. No definite new acute pathology. Wilfrido Montgomery MD on April 01, 2017 at 6:48 Board Certified Radiologist. This report was verified electronically.
[2017-04-01] MEDS ORDERED: POLY17PO3 PO (06:58)
[2017-04-01] MEDS ORDERED: MAGNSOL2 PO (06:59)
[2017-04-01] MEDS ORDERED: DICY10 PO (07:00)
== END 2017-04-01 09:43 | disposition home or self-care (01) ==
LOC: NEPE 01:44
DX: K59.00 Constipation, unspecified (principal); R11.0 Nausea; R19.7 Diarrhea, unspecified; I10 Essential (primary) hypertension; Z79.899 Other long term (current) drug therapy; Z88.1 Allergy status to other antibiotic agents; Z88.8 Allergy status to other drugs, medicaments and biological substances; Z72.0 Tobacco use
CPT/HCPCS: 74177; 80053; 81001; 85025; 96372; 96374; 96375; 99285; J0500; J2270; J2405; Q9967; J7040

== ENCOUNTER 2017-04-15 21:30 | Emergency (ER) | payer SELFPAY ==
[~2017-04-15 21:30] MED LIST changes: +DICY10 PO; +HYDR-3533 PO; +MAGNSOL2 PO; +POLY17PO3 PO
[2017-04-15 21:32] VITALS: BP 178/76; PULSE 51; RESP 15; TEMP 98.8; O2SAT 98
[2017-04-15] MEDS ORDERED: SODIUM CHLOR 0.9% 1000 ML INJ 1,000 ML IV SCH (22:10)
[2017-04-15] MEDS ORDERED: MORPHINE SULFATE 4 MG/ML INJ IV PUSH ONE (22:15)
[2017-04-15] MEDS ORDERED: SODIUM CHLORIDE 0.9% FLUSH 10 ML FLUSH IV FLUSH PRN (22:15)
[2017-04-15 23:15] VITALS: BP 187/83; PULSE 48; RESP 26; O2SAT 99
[2017-04-15 23:18] VITALS: BP 187/83; PULSE 49; RESP 22; O2SAT 98
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
[2017-04-15 23:29] LABS: AUTOMATED NEUTROPHIL # 5.9 TH/MM3 (1.8-7.7); BASOPHIL # 0.1 TH/MM3 (0-0.2); BASOPHIL % 0.9 % (0.0-2.0); EOSINOPHIL # 0.1 TH/MM3 (0-0.4); EOSINOPHIL % 1.5 % (0.0-4.0); HEMATOCRIT 44.4 % (35.0-46.0); HEMO FLAGS DIFF FINAL; LYMPH % 30.3 % (9.0-44.0); LYMPHOCYTE # 2.9 TH/MM3 (1.0-4.8); MEAN CELL VOLUME 84.9 FL (80.0-100.0); MEAN CORPUSCULAR HGB CONC 34.2 % (32.0-36.0); MONO % 6.7 % (0.0-8.0); NEUT % 60.6 % (16.0-70.0); PLATELET COUNT 167 TH/MM3 (150-450); RED BLOOD COUNT 5.23 MIL/MM3 (4.00-5.30); RED CELL DISTRIBUTION WIDTH 13.6 % (11.6-17.2); WHITE BLOOD COUNT 9.7 TH/MM3 (4.0-11.0)
[2017-04-15 23:41] LABS: ALKALINE PHOSPHATASE 184 U/L (45-117); ALT (GPT) 16 U/L (10-53); TOTAL BILIRUBIN ADULT 0.2 MG/DL (0.2-1.0)
[2017-04-15 23:47] LABS: ANION GAP 5 MEQ/L (5-15); AST (GOT) 13 U/L (15-37); BICARBONATE 29.1 MEQ/L (21.0-32.0); BLOOD UREA NITROGEN 9 MG/DL (7-18); CHLORIDE 103 MEQ/L (98-107); GLOMERULAR FILTRATION RATE 90 ML/MIN (>89); POTASSIUM 4.1 MEQ/L (3.5-5.1); SODIUM (NA) 137 MEQ/L (136-145)
[2017-04-16 00:04] LABS: BACTERIA, URINE RARE /hpf; BLOOD, URINE NEG (NEG); COMMENT (UR) CULT NOT INDICATED; CULTURE IF INDICATED CULT NOT INDICATED; GLUCOSE,URINE NEG (NEG); KETONE, URINE NEG (NEG); NITRITE,URINE NEG (NEG); PH, URINE 7.5 (5.0-8.5); SQUAMOUS EPITHELIAL CELL URINE 1 /hpf (0-5); URINE COLOR LIGHT-YELLOW (YELLW/STRAW)
[2017-04-16] MEDS ORDERED: DICY10 PO (00:44)
[2017-04-16 01:03] VITALS: BP 151/81; PULSE 50; RESP 22; O2SAT 98
== END 2017-04-16 01:10 | disposition home or self-care (01) ==
LOC: NEPE 21:30
DX: R19.7 Diarrhea, unspecified (principal); R10.9 Unspecified abdominal pain; F17.210 Nicotine dependence, cigarettes, uncomplicated; I10 Essential (primary) hypertension
CPT/HCPCS: 80053; 81001; 83690; 85025; 96374; 99284; J2270

== ENCOUNTER 2017-07-08 19:53 | Emergency (ER) | payer OTHER ==
[~2017-07-08 19:53] MED LIST changes: -HYDR-3533 PO; -MAGNSOL2 PO
[2017-07-08 19:54] VITALS: BP 228/115; PULSE 64; RESP 16; TEMP 98.5; O2SAT 98
[2017-07-08 20:16] VITALS: BP 172/85
[2017-07-08] MEDS ORDERED: SODIUM CHLORIDE 0.9% FLUSH 10 ML FLUSH IV FLUSH PRN (20:30)
[2017-07-08] MEDS ORDERED: ONDANSETRON HCL 4 MG/2 ML VIAL IVP ONE (20:30)
[2017-07-08] MEDS ORDERED: MORPHINE SULFATE 4 MG/ML INJ IV PUSH ONE (20:30)
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
[2017-07-08 21:23] LABS: AUTOMATED NEUTROPHIL # 11.3 TH/MM3 (1.8-7.7); BASOPHIL # 0.1 TH/MM3 (0-0.2); BASOPHIL % 0.5 % (0.0-2.0); EOSINOPHIL % 0.1 % (0.0-4.0); HEMATOCRIT 42.8 % (35.0-46.0); HEMOGLOBIN 14.3 GM/DL (11.6-15.3); LYMPH % 12.5 % (9.0-44.0); LYMPHOCYTE # 1.8 TH/MM3 (1.0-4.8); MEAN CELL VOLUME 84.3 FL (80.0-100.0); MEAN CORPUSCULAR HEMOGLOBIN 28.2 PG (27.0-34.0); MEAN CORPUSCULAR HGB CONC 33.4 % (32.0-36.0); MONO % 6.7 % (0.0-8.0); MONOCYTE # 0.9 TH/MM3 (0-0.9); NEUT % 80.2 % (16.0-70.0); PLATELET COUNT 171 TH/MM3 (150-450); RED BLOOD COUNT 5.08 MIL/MM3 (4.00-5.30); RED CELL DISTRIBUTION WIDTH 13.1 % (11.6-17.2); WHITE BLOOD COUNT 14.1 TH/MM3 (4.0-11.0)
[2017-07-08 21:34] LABS: ALBUMIN 3.3 GM/DL (3.4-5.0); ALT (GPT) 44 U/L (10-53); AST (GOT) 61 U/L (15-37); BICARBONATE 26.9 MEQ/L (21.0-32.0); BLOOD UREA NITROGEN 8 MG/DL (7-18); CALCIUM 8.9 MG/DL (8.5-10.1); CHLORIDE 101 MEQ/L (98-107); CREATININE 0.63 MG/DL (0.50-1.00); GLOMERULAR FILTRATION RATE 95 ML/MIN (>89); GLUCOSE,RANDOM 144 MG/DL (74-106); LIPASE 65 U/L (73-393); PROTHROMBIN TIME - PATIENT 11.1 SEC (9.8-11.6); SODIUM (NA) 136 MEQ/L (136-145)
[2017-07-08 21:39] LABS: ALKALINE PHOSPHATASE 244 U/L (45-117); TOTAL BILIRUBIN ADULT 0.6 MG/DL (0.2-1.0); TROPONIN I LESS THAN 0.02 NG/ML (0.02-0.05)
[2017-07-08] MEDS ORDERED: IOHEXOL 350 MG/ML 10 ML VIAL (for RAD DIAG) IVCONTRAST ONE (22:00)
--- NOTE | 2017-07-08 22:14 | RADRPT ---
EXAM DATE/TIME: 07/08/2017 21:46 [facility] COMPARISON: CT BRAIN W/O CONTRAST, January 29, 2012, 16:34. INDICATIONS : Cephalgia. RADIATION DOSE: 42.32 CTDIvol (mGy) MEDICAL HISTORY : Hypertension. Cardiovascular disease SURGICAL HISTORY : None. ENCOUNTER: Initial ACUITY: 1 day PAIN SCALE: 4/10 LOCATION: cranial TECHNIQUE: Multiple contiguous axial images were obtained of the head. Using automated exposure control and adj ustment of the mA and/or kV according to patient size, radiation dose was kept as low as reasonably a chievable to obtain optimal diagnostic quality images. DICOM format image data is available electro nically for review and comparison. FINDINGS: CEREBRUM: The ventricles are normal for age. No evidence of midline shift, mass lesion, hemorrhage or acute in farction. No extra-axial fluid collections are seen. POSTERIOR FOSSA: The cerebellum and brainstem are intact. The 4th ventricle is midline. The cerebellopontine angle i s unremarkable. EXTRACRANIAL: The visualized portion of the orbits is intact. SKULL: The calvaria is intact. No evidence of skull fracture. CONCLUSION: No acute intracranial findings Gus Isaacs MD on July 08, 2017 at 22:11 Board Certified Radiologist. This report was verified electronically.
--- NOTE | 2017-07-08 22:24 | RADRPT ---
EXAM DATE/TIME: 07/08/2017 21:49 [facility] COMPARISON: No previous studies available for comparison. INDICATIONS : Lower quadrant pain. IV CONTRAST: 75 cc Omnipaque 350 (iohexol) IV ORAL CONTRAST: No oral contrast ingested. RADIATION DOSE: 7.19 CTDIvol (mGy) MEDICAL HISTORY : Hypertension. Diverticulitis. SURGICAL HISTORY : section. Tubal ligation. ENCOUNTER: Initial ACUITY: 1 day PAIN SCALE: 8/10 LOCATION: Bilateral lower quadrant TECHNIQUE: Volumetric scanning of the abdomen and pelvis was performed. Using automated exposure control and ad justment of the mA and/or kV according to patient size, radiation dose was kept as low as reasonably achievable to obtain optimal diagnostic quality images. DICOM format image data is available electro nically for review and comparison. FINDINGS: LOWER LUNGS: The visualized lower lungs are clear. LIVER: Homogeneous density without lesion. There is no dilation of the biliary tree. No calcified gallston es. SPLEEN: Normal size without lesion. PANCREAS: Within normal limits. KIDNEYS: Normal in size and shape. There is no mass, stone or hydronephrosis. ADRENAL GLANDS: Within normal limits. VASCULAR: There is no aortic aneurysm. BOWEL/MESENTERY: Colonic diverticula. Prominent indurated changes and mild wall thickening associated with the mid to distal descending colon consistent with diverticulitis. No evidence of perforation, abscess or obstru ction at present. ABDOMINAL WALL: Within normal limits. RETROPERITONEUM: There is no lymphadenopathy. BLADDER: No wall thickening or mass. REPRODUCTIVE: Within normal limits. INGUINAL: There is no lymphadenopathy or hernia. MUSCULOSKELETAL: Within normal limits for patient age. CONCLUSION: Uncomplicated descending colon diverticulitis. Gus Isaacs MD on July 08, 2017 at 22:21 Board Certified Radiologist. This report was verified electronically.
[2017-07-08 22:27] LABS: AMORPHOUS SEDIMENT, URINE OCC; BACTERIA, URINE RARE /hpf; BILIRUBIN, URINE NEG (NEG); BLOOD, URINE NEG (NEG); GLUCOSE,URINE NEG (NEG); KETONE, URINE NEG (NEG); NITRITE,URINE NEG (NEG); SQUAMOUS EPITHELIAL CELL URINE 1 /hpf (0-5); URINE COLOR YELLOW (YELLW/STRAW); URINE LEUKOCYTE ESTERASE NEG (NEG)
[2017-07-08] MEDS ORDERED: metroNIDAZOLE 500 MG INJ 100 ML IV ONE (22:30)
[2017-07-08] MEDS ORDERED: CIPROFLOXACIN 400 MG PREMIX 200 ML IV ONE (22:30)
[2017-07-08] MEDS ORDERED: METR-1 PO (22:32)
[2017-07-08] MEDS ORDERED: CIPR500T2 PO (22:32)
[2017-07-08] MEDS ORDERED: MORPHINE SULFATE 2 MG/ML INJ IV PUSH ONE (23:00)
[2017-07-08 23:01] VITALS: BP 147/73; PULSE 58; RESP 18; O2SAT 95
--- NOTE | 2017-07-09 16:30 | EKG ---
Date Performed: 07/08/2017 Time Performed: 21:12:49 PTAGE: 67 years EKG: SINUS BRADYCARDIA BORDERLINE LEFT AXIS DEVIATION PRECORDIAL U-WAVE OR T-U FUSION. SINCE PRE VIOUS TRACING THERE IS NO SIGNIFICANT CHANGE. PRESENT TRACING ALSO SHOWS PROBABLY LEFT ATRIAL ENLARGE MENT AND MILD LATERAL ST SEGMENT CHANGES. BORDERLINE ECG PREVIOUS TRACING : 09/12/2016 20.02 DOCTOR: Mirna Alex Interpretating Date/Time 07/09/2017 16:29:03
== END 2017-07-09 00:14 | disposition home or self-care (01) ==
LOC: NEPC 19:53
DX: K57.92 Diverticulitis of intestine, part unspecified, without perforation or abscess without bleeding (principal); R51 Headache; R42 Dizziness and giddiness; R00.1 Bradycardia, unspecified; M06.9 Rheumatoid arthritis, unspecified; I10 Essential (primary) hypertension; F17.210 Nicotine dependence, cigarettes, uncomplicated; Z79.899 Other long term (current) drug therapy; Z87.19 Personal history of other diseases of the digestive system
CPT/HCPCS: 70450; 74177; 80053; 81001; 82550; 83690; 84484; 85025; 85610; 85730; 93005; 96365; 96367; 96375; 96376; 99285; J0744; J2270; J2405; Q9967

== ENCOUNTER 2017-07-14 05:11 | Emergency (ER) | payer OTHER ==
[~2017-07-14] VITALS: Ht 157.5 cm; Wt 55.0 kg
[~2017-07-14 05:11] MED LIST changes: +CIPR500T2 PO; +METR-1 PO
[2017-07-14 05:23] VITALS: BP 229/102; PULSE 85; RESP 18; TEMP 98.5; O2SAT 98
[2017-07-14 05:43] VITALS: RESP 18; O2SAT 98
[2017-07-14 05:56] LABS: AUTOMATED NEUTROPHIL # 5.7 TH/MM3 (1.8-7.7); BASOPHIL # 0.1 TH/MM3 (0-0.2); BASOPHIL % 0.9 % (0.0-2.0); EOSINOPHIL # 0.2 TH/MM3 (0-0.4); EOSINOPHIL % 2.3 % (0.0-4.0); HEMATOCRIT 43.3 % (35.0-46.0); HEMO FLAGS DIFF FINAL; LYMPH % 30.8 % (9.0-44.0); MEAN CELL VOLUME 84.9 FL (80.0-100.0); MEAN CORPUSCULAR HEMOGLOBIN 28.8 PG (27.0-34.0); PLATELET COUNT 188 TH/MM3 (150-450); WHITE BLOOD COUNT 9.8 TH/MM3 (4.0-11.0)
--- NOTE | 2017-07-14 06:01 | PD ---
HPI Chief Complaint: Hypertension Time Seen by Provider: 05:17 Travel History International Travel<30 days: No Contact w/Intl Traveler<30days: No Traveled to known affect area: No History of Present Illness HPI The patient is a 67 year old female who presents to the [facility] emergency department with a history of reportedly taking her usual blood pressure medication at midnight. She reports that she had been awakened later with the sensation that her blood pressure was up with a dull bitemporal headache and a sensation of flushing all over. The patient took her blood pressure at home and it was noted to be elevated above 200. She was told by her primary care physician that if her blood pressures ever over 200 she should come in for evaluation and treatment. The patient was recently seen in the emergency department on July 08 related to elevated blood pressure and was also diagnosed with diverticulitis. She is currently on antibiotic. She reports that her abdominal symptoms have improved. She reports that she does have a follow-up appointment scheduled with her primary care physician, Dr. Braden scheduled for Thursday. On review of systems, she denies any recent fevers , cough, congestion, neck pain, chest pain, shortness of breath, vomiting, urinary symptoms, or neurologic symptoms. The patient reports that she has had some recent loose stools. She reports that she is having them 3-4 times per day. [facility] Past Medical History Narrative Medical The patient's past medical history is significant for mitral valve prolapse, rheumatoid arthritis, hypertension, history of left breast cancer status post lumpectomy and lymph node dissection, history of prior chemotherapy related to breast cancer, history of urinary retention of undetermined cause, history of diverticulitis. Hx Anticoagulant Therapy: No Arthritis: Yes (RA) Autoimmune Disease: No Blood Disorders: No Anxiety: No Depression: No Heart Rhythm Problems: No Cancer: Yes (LEFT BREAST) Cardiovascular Problems: Yes (PROLAPSED VALVE) High Cholesterol: No Chemotherapy: Yes (1 YEAR AGO) Chest Pain: Yes Congestive Heart Failure: No Cerebrovascular Accident: No Diabetes: No Diminished Hearing: No Diverticulitis: Yes Endocrine: No Gastrointestinal Disorders: Yes (HEMORRHOIDS, CHRONIC CONSTIPATION, IBS) Genitourinary: Yes (KIDNEY) Headaches: No Hypertension: Yes Immune Disorder: No Musculoskeletal: Yes Neurologic: No Psychiatric: No Respiratory: No Immunizations Current: Yes Radiation Therapy: Yes Thyroid Disease: No Tetanus Vaccination: > 5 Years ?: Not Menopausal: Yes : 4 Para: 4 Miscarriage: 0 Tubal Ligation: Yes Past Surgical History Narrative Surgical The patient's past surgical history is significant for colon polyps resection, breast surgery related to breast cancer, history of [id number] placement in the right chest, , lymph node dissection related to breast cancer. Abdominal Surgery: Yes (POLYS REMOVED FROM COLON) AICD: No Cardiac Surgery: No Section: Yes (1984) Ear Surgery: No Endocrine Surgery: No Eye Surgery: No Genitourinary Surgery: Yes ([employer] CATH FOR 3 YEARS) Gynecologic Surgery: Yes (C section ) Hysterectomy: No Joint Replacement: No Neurologic Surgery: No Oral Surgery: No Pacemaker: No Thoracic Surgery: Yes (LEFT BREAST LYMPHNODES REMOVED 2015) Other Surgery: Yes (POLYS REMOVED FROM COLON, PORT PLACEMENT ) Social History Alcohol Use: No Tobacco Use: Yes (2 CIGARETTES DAILY) Substance Use: No Allergies-Medications (Allergen,Severity, Reaction): Coded Allergies: prednisone (Verified Allergy, Severe, Rash, 07/14/17) doxycycline (Unverified Adverse Reaction, Severe, severe nausea and vomiting, 07/14/17) minocycline (Unverified Adverse Reaction, Severe, severe nausea and vomiting, 07/14/17) tigecycline (Unverified Adverse Reaction, Severe, severe nausea and vomiting, 07/14/17) erythromycin base (Unverified Adverse Reaction, Intermediate, Nausea/ Vomiting, 07/14/17) Uncoded Allergies: steroids (Allergy, Unknown, 02/28/16) Reported Meds & Prescriptions Reported Meds & Active Scripts Active Ciprofloxacin (Ciprofloxacin HCl) 500 Mg Tab 500 Mg PO BID 10 Days Flagyl (Metronidazole) 500 Mg Tab 500 Mg PO QID 10 Days Bentyl (Dicyclomine HCl) 10 Mg Cap 10 Mg PO TID PRN Miralax (Polyethylene Glycol 3350) 17 Gm Powd.pack 17 Gm PO DAILY Reported Metoprolol Tartrate 100 Mg Tab 100 Mg PO BID Enalapril (Enalapril Maleate) 20 Mg Tab 20 Mg PO BID Minoxidil 2.5 Mg Tab 2.5 Mg PO DAILY Clonidine (Clonidine HCl) 0.2 Mg Tab 0.2 Mg PO TID Amlodipine (Amlodipine Besylate) 10 Mg Tab 10 Mg PO DAILY Omeprazole 40 Mg Cap 40 Mg PO DAILY Review of Systems Except as stated in HPI: all other systems reviewed are Neg General / Constitutional: No: Fever Eyes: No: Visual changes HENT: Positive: Headaches, No: Rhinorrhea, Congestion, Neck Stiffness, Neck Pain Cardiovascular: No: Chest Pain or Discomfort Respiratory: No: Shortness of Breath Gastrointestinal: Positive: Diarrhea, Abdominal Pain, Changes in Bowel Habits, No: Nausea, Vomiting, Hematemesis, Hematochezia, Indigestion, Loss of Appetite Genitourinary: No: Dysuria Musculoskeletal: No: Pain Skin: No Rash Neurologic: Positive: Headache, No: Weakness, Focal Abnormalities, Change in Mentation, Slurred Speech, Sensory Disturbance Psychiatric: No: Depression Endocrine: No: Polydipsia Hematologic/Lymphatic: No: Easy Bruising Physical Exam Narrative General: The patient is a well-developed well-nourished female in no acute distress. Head and Neck exam: Head is normocephalic atraumatic. Eyes: EOMI, pupils are equal round and reactive to light. Nose: Midline septum with pink mucous membranes Mouth: Dentition unremarkable. Moist mucus membranes. Posterior oropharynx is not erythematous. No tonsillar hypertrophy. Uvula midline. Airway patent. Neck: No palpable lymphadenopathy. No nuchal rigidity. No thyromegaly. Cardiovascular: Sinus bradycardia in the 50s without murmurs, gallops, or rubs. No pulse deficit to the extremities on simultaneous auscultation and palpation of her radial artery Lungs: Clear to auscultation bilaterally. No wheezes, rhonchi, or rales. Abdomen: Soft, without tenderness to palpation in all 4 quadrants of the abdomen. No guarding, rebound, or rigidity. Normal bowel sounds are audible. No tenderness on palpation of McBurney's point. Extremities: No clubbing, cyanosis, or edema. 2+ pulses in all 4 extremities. No calf tenderness on palpation. Back: No costovertebral angle tenderness to palpation. Neurologic Exam: Grossly nonfocal. Skin Exam: No rash noted. Intact skin that is warm and dry. Data Data Last Documented VS Vital Signs Date Time Temp Pulse Resp B/P (MAP) Pulse Ox O2 Delivery O2 Flow Rate FiO2 07/14/17 06:46 59 18 190/85 (120) 98 Room Air 07/14/17 05:23 98.5 Orders Orders Complete Blood Count With Diff (07/14/17 05:33) Basic Metabolic Panel (Bmp) (07/14/17 05:33) Troponin I (07/14/17 05:33) Urinalysis - C+S If Indicated (07/14/17 05:33) Iv Access Insert/Monitor (07/14/17 05:33) Ecg Monitoring (07/14/17 05:33) Oximetry (07/14/17 05:33) Clonidine (Catapres) (07/14/17 06:15) Labs Laboratory Tests Test 07/14/17 00:54 07/14/17 05:45 White Blood Count 9.8 TH/MM3 Red Blood Count 5.10 MIL/MM3 Hemoglobin 14.7 GM/DL Hematocrit 43.3 % Mean Corpuscular Volume 84.9 FL Mean Corpuscular Hemoglobin 28.8 PG Mean Corpuscular Hemoglobin Concent 34.0 % Red Cell Distribution Width 13.0 % Platelet Count 188 TH/MM3 Mean Platelet Volume 10.2 FL Neutrophils (%) (Auto) 58.0 % Lymphocytes (%) (Auto) 30.8 % Monocytes (%) (Auto) 8.0 % Eosinophils (%) (Auto) 2.3 % Basophils (%) (Auto) 0.9 % Neutrophils # (Auto) 5.7 TH/MM3 Lymphocytes # (Auto) 3.0 TH/MM3 Monocytes # (Auto) 0.8 TH/MM3 Eosinophils # (Auto) 0.2 TH/MM3 Basophils # (Auto) 0.1 TH/MM3 CBC Comment DIFF FINAL Differential Comment Blood Urea Nitrogen 10 MG/DL Creatinine 0.63 MG/DL Random Glucose 103 MG/DL Calcium Level 9.0 MG/DL Sodium Level 136 MEQ/L Potassium Level 3.8 MEQ/L Chloride Level 103 MEQ/L Carbon Dioxide Level 27.0 MEQ/L Anion Gap 6 MEQ/L Estimat Glomerular Filtration Rate 95 ML/MIN Troponin I LESS THAN 0.02 NG/ML Urine Color LIGHT-YELLOW Urine Turbidity CLEAR Urine pH 7.0 Urine Specific [place] 1.005 Urine Protein NEG mg/dL Urine Glucose (UA) NEG mg/dL Urine Ketones NEG mg/dL Urine Occult Blood NEG Urine Nitrite NEG Urine Bilirubin NEG Urine Urobilinogen LESS THAN 2.0 MG/DL Urine Leukocyte Esterase TRACE Urine RBC 3 /hpf Urine WBC 2 /hpf Urine Squamous Epithelial Cells 1 /hpf Urine Bacteria FEW /hpf Urine Hyaline Casts 1 /lpf Microscopic Urinalysis Comment CULT NOT INDICATED MDM Medical Decision Making Medical Screen Exam Complete: Yes Emergency Medical Condition: Yes Medical Record Reviewed: Yes Differential Diagnosis Poorly controlled hypertension, versus hypertensive urgency, versus hypertensive emergency Narrative Course During the course of the patients emergency department visit, the patients history, examination, and differential diagnosis were reviewed with the patient. The patient was placed on a transfer machine operator with oximetry and frequent blood pressure monitoring. The patient had IV access obtained and blood work sent for analysis. An EKG was done on arrival. The patient's ECG reveals a sinus bradycardia heart rate of 51, no acute ST segment elevation. T waves are inverted in V1. The patient's repeat blood pressure was noted to be in the 170s systolic. The patient reports that she is due to take her clonidine at 6 AM. It was ordered for the patient to receive 0.1 of clonidine by mouth. The patients laboratory studies were reviewed and remarkable for a CBC that is within normal limit, basic metabolic profile within normal limits, troponin I less than 0.02, urinalysis is unremarkable. The patient is resting comfortably and feels better, is alert and in no distress. The patients results and examination findings were discussed with the patient. The repeat examination is unremarkable and benign. The history, exam, diagnostic testing, and current condition do not suggest any significant pathology to warrant further testing, continued ED treatment, admission, or surgical evaluation at this point. The vital signs have been stable. The patient does not have uncontrollable pain, intractable vomiting, or other significant symptoms. The patient's condition is stable and appropriate for discharge. The patient will pursue further outpatient evaluation with a primary care physician or other designated or consulting physician as indicated in the discharge instructions. The patient expressed understanding and was agreeable with this plan. Diagnosis Primary Impression: HTN (hypertension) Qualified Codes: I10 - Essential (primary) hypertension Referrals: Primary Care Physician Patient Instructions: General Instructions, Hypertension (ED) Med/Other Pt SpecificInfo: No Change to Meds Disposition: 01 DISCHARGE HOME Condition: Stable Nazanin Huertas MD Jul 14, 2017 06:01
[2017-07-14 06:13] LABS: BACTERIA, URINE FEW /hpf; BLOOD, URINE NEG (NEG); COMMENT (UR) CULT NOT INDICATED; CULTURE IF INDICATED CULT NOT INDICATED; GLUCOSE,URINE NEG (NEG); HYALINE CAST, URINE 1 /lpf (RARE); KETONE, URINE NEG (NEG); NITRITE,URINE NEG (NEG); SQUAMOUS EPITHELIAL CELL URINE 1 /hpf (0-5); URINE COLOR LIGHT-YELLOW (YELLW/STRAW)
[2017-07-14] MEDS ORDERED: cloNIDine HCL 0.1 MG TAB PO ONE (06:15)
[2017-07-14 06:22] LABS: ANION GAP 6 MEQ/L (5-15); BLOOD UREA NITROGEN 10 MG/DL (7-18); CHLORIDE 103 MEQ/L (98-107); GLOMERULAR FILTRATION RATE 95 ML/MIN (>89); POTASSIUM 3.8 MEQ/L (3.5-5.1); SODIUM (NA) 136 MEQ/L (136-145)
[2017-07-14 06:46] VITALS: BP 190/85; PULSE 59; RESP 18; O2SAT 98
[2017-07-14 07:00] VITALS: BP 205/89; PULSE 58; RESP 20; O2SAT 97
--- NOTE | 2017-07-14 07:21 | PD ---
Data Data Last Documented VS Vital Signs Date Time Temp Pulse Resp B/P (MAP) Pulse Ox O2 Delivery O2 Flow Rate FiO2 07/14/17 06:46 59 18 190/85 (120) 98 Room Air 07/14/17 05:23 98.5 Orders Orders Complete Blood Count With Diff (07/14/17 05:33) Basic Metabolic Panel (Bmp) (07/14/17 05:33) Troponin I (07/14/17 05:33) Urinalysis - C+S If Indicated (07/14/17 05:33) Iv Access Insert/Monitor (07/14/17 05:33) Ecg Monitoring (07/14/17 05:33) Oximetry (07/14/17 05:33) Clonidine (Catapres) (07/14/17 06:15) Electrocardiogram (07/14/17 05:31) Labs Laboratory Tests Test 07/14/17 00:54 07/14/17 05:45 White Blood Count 9.8 TH/MM3 Red Blood Count 5.10 MIL/MM3 Hemoglobin 14.7 GM/DL Hematocrit 43.3 % Mean Corpuscular Volume 84.9 FL Mean Corpuscular Hemoglobin 28.8 PG Mean Corpuscular Hemoglobin Concent 34.0 % Red Cell Distribution Width 13.0 % Platelet Count 188 TH/MM3 Mean Platelet Volume 10.2 FL Neutrophils (%) (Auto) 58.0 % Lymphocytes (%) (Auto) 30.8 % Monocytes (%) (Auto) 8.0 % Eosinophils (%) (Auto) 2.3 % Basophils (%) (Auto) 0.9 % Neutrophils # (Auto) 5.7 TH/MM3 Lymphocytes # (Auto) 3.0 TH/MM3 Monocytes # (Auto) 0.8 TH/MM3 Eosinophils # (Auto) 0.2 TH/MM3 Basophils # (Auto) 0.1 TH/MM3 CBC Comment DIFF FINAL Differential Comment Blood Urea Nitrogen 10 MG/DL Creatinine 0.63 MG/DL Random Glucose 103 MG/DL Calcium Level 9.0 MG/DL Sodium Level 136 MEQ/L Potassium Level 3.8 MEQ/L Chloride Level 103 MEQ/L Carbon Dioxide Level 27.0 MEQ/L Anion Gap 6 MEQ/L Estimat Glomerular Filtration Rate 95 ML/MIN Troponin I LESS THAN 0.02 NG/ML Urine Color LIGHT-YELLOW Urine Turbidity CLEAR Urine pH 7.0 Urine Specific [place] 1.005 Urine Protein NEG mg/dL Urine Glucose (UA) NEG mg/dL Urine Ketones NEG mg/dL Urine Occult Blood NEG Urine Nitrite NEG Urine Bilirubin NEG Urine Urobilinogen LESS THAN 2.0 MG/DL Urine Leukocyte Esterase TRACE Urine RBC 3 /hpf Urine WBC 2 /hpf Urine Squamous Epithelial Cells 1 /hpf Urine Bacteria FEW /hpf Urine Hyaline Casts 1 /lpf Microscopic Urinalysis Comment CULT NOT INDICATED MDM Supervised Visit with NEYMAR: Yes Narrative Course This 67 year-old woman with elevated blood pressure. Looks well. No evidence of hypertensive emergency. Recommend she continue her current medications at home and follow-up with her doctor in the next 2-3 days. Diagnosis Primary Impression: HTN (hypertension) Qualified Codes: I10 - Essential (primary) hypertension Referrals: Primary Care Physician Patient Instructions: General Instructions, Hypertension (ED) Additional Instruction: Continue current medications at home. Take blood pressure medications as prescribed. Take your blood pressure 1 time each day, write it down and a log, take that log with you when you follow up with your blood pressure primary physician. Med/Other Pt SpecificInfo: No Change to Meds Disposition: 01 DISCHARGE HOME Condition: Stable Chicho Jimenez MD Jul 14, 2017 07:21
--- NOTE | 2017-07-14 19:53 | EKG ---
Date Performed: 07/14/2017 Time Performed: 05:31:47 PTAGE: 67 years EKG: SINUS BRADYCARDIA BORDERLINE ECG PREVIOUS TRACING 07/08/2017 @ 21.12 DOCTOR: Sasha Crystal Interpretating Date/Time 07/14/2017 19:53:12
[2017-07-15] MEDS ORDERED: CLON0.2T PO (10:45)
[2017-07-15] MEDS ORDERED: AMLO10TA2 PO (10:45)
[2017-07-15] MEDS ORDERED: METO100T PO (10:45)
[2017-07-15] MEDS ORDERED: ENAL20TA PO (10:45)
[2017-07-15] MEDS ORDERED: TAMS5CAP PO (11:09)
== END 2017-07-14 07:40 | disposition home or self-care (01) ==
LOC: NEPC 05:11
DX: I10 Essential (primary) hypertension (principal); M06.9 Rheumatoid arthritis, unspecified; R94.31 Abnormal electrocardiogram [ECG] [EKG]; Z72.0 Tobacco use
CPT/HCPCS: 80048; 81001; 84484; 85025; 93005; 99284

== ENCOUNTER 2017-07-15 09:03 | Emergency (ER) | payer OTHER ==
[~2017-07-15] VITALS: Ht 152.4 cm; Wt 55.0 kg
[2017-07-15 09:04] VITALS: BP 200/102; PULSE 69; RESP 18; TEMP 98.6; O2SAT 95
[2017-07-15 09:43] VITALS: BP 238/101; PULSE 69; RESP 18; O2SAT 98
[2017-07-15] MEDS ORDERED: hydrALAZINE HCL 20 MG/ML VIAL IV PUSH ONE (10:15)
[2017-07-15 10:20] VITALS: BP 196/97; PULSE 64; RESP 16; O2SAT 98
[2017-07-15 10:38] VITALS: BP 196/95; PULSE 70; RESP 16; O2SAT 98
[2017-07-15] MEDS ORDERED: METO100T PO (10:45)
[2017-07-15] MEDS ORDERED: ENAL20TA PO (10:45)
[2017-07-15] MEDS ORDERED: CLON0.2T PO (10:45)
[2017-07-15] MEDS ORDERED: AMLO10TA2 PO (10:45)
--- NOTE | 2017-07-15 10:45 | PD ---
HPI Chief Complaint: Chest Pain Time Seen by Provider: 09:49 Travel History International Travel<30 days: No Contact w/Intl Traveler<30days: No Traveled to known affect area: No History of Present Illness HPI Is a 67-year-old woman presents emergent heart complaining of chest pain and elevated blood pressure. I saw her yesterday for elevated blood pressure. She reports that she's taking amlodipine, clonidine, enalapril, metoprolol, and minoxidil. We called and spoke with her pharmacy and she hasn't filled the amlodipine in over a year, she hasn't filled the minoxidil since September. Patient states she has extra amlodipine but is probably not taking the minoxidil. She states she was referred to come back to the emergency department by her primary physician's office, Dr. Gus Braden. He called to speak to their office but they have a full her for her but have never seen her. She states she was seen Dr. Lorenzana for cardiology but hasn't seen him because she's changing insurance. She very fixated on her blood pressure is a cause of her symptoms. She states her blood pressure like it's better if she gets IV medications. History Past Medical History Narrative Medical High blood pressure RA History of left breast cancer Diverticulitis Mitral valve prolapse Influenza Vaccination: No Menopausal: Yes : 4 Para: 4 Social History Alcohol Use: No Tobacco Use: Yes (2 CIGARETTES DAILY) Allergies-Medications (Allergen,Severity, Reaction): Coded Allergies: prednisone (Verified Allergy, Severe, Rash, 07/14/17) doxycycline (Unverified Adverse Reaction, Severe, severe nausea and vomiting, 07/14/17) minocycline (Unverified Adverse Reaction, Severe, severe nausea and vomiting, 07/14/17) tigecycline (Unverified Adverse Reaction, Severe, severe nausea and vomiting, 07/14/17) erythromycin base (Unverified Adverse Reaction, Intermediate, Nausea/ Vomiting, 07/14/17) Uncoded Allergies: steroids (Allergy, Unknown, 02/28/16) Reported Meds & Prescriptions Reported Meds & Active Scripts Active Ciprofloxacin (Ciprofloxacin HCl) 500 Mg Tab 500 Mg PO BID 10 Days Flagyl (Metronidazole) 500 Mg Tab 500 Mg PO QID 10 Days Bentyl (Dicyclomine HCl) 10 Mg Cap 10 Mg PO TID PRN Miralax (Polyethylene Glycol 3350) 17 Gm Powd.pack 17 Gm PO DAILY Reported Metoprolol Tartrate 100 Mg Tab 100 Mg PO BID Enalapril (Enalapril Maleate) 20 Mg Tab 20 Mg PO BID Minoxidil 2.5 Mg Tab 2.5 Mg PO DAILY Clonidine (Clonidine HCl) 0.2 Mg Tab 0.2 Mg PO TID Amlodipine (Amlodipine Besylate) 10 Mg Tab 10 Mg PO BID Omeprazole 40 Mg Cap 40 Mg PO DAILY Review of Systems Except as stated in HPI: all other systems reviewed are Neg Physical Exam Narrative GENERAL: Well-appearing 67-year-old woman, no acute distress. SKIN: Focused skin assessment warm/dry. HEAD: Atraumatic. Normocephalic. EYES: Pupils equal and round. No scleral icterus. No injection or drainage. ENT: No nasal bleeding or discharge. Mucous membranes pink and moist. NECK: Trachea midline. No JVD. CARDIOVASCULAR: Regular rate and rhythm. No murmur appreciated. RESPIRATORY: No accessory muscle use. Clear to auscultation. Breath sounds equal bilaterally. GASTROINTESTINAL: Abdomen soft, non-tender, nondistended. Hepatic and splenic margins not palpable. MUSCULOSKELETAL: No obvious deformities. No clubbing. No cyanosis. No edema. NEUROLOGICAL: Awake and alert. No obvious cranial nerve deficits. Motor grossly within normal limits. Normal speech. PSYCHIATRIC: Appropriate mood and affect; insight and judgment normal. Data Data Last Documented VS Vital Signs Date Time Temp Pulse Resp B/P (MAP) Pulse Ox O2 Delivery O2 Flow Rate FiO2 07/15/17 10:38 70 16 196/95 (128) 98 Room Air 07/15/17 09:04 98.6 Orders Orders Hydralazine Inj (Apresoline Inj) (07/15/17 10:15) [facility] Medical Decision Making Medical Screen Exam Complete: Yes Emergency Medical Condition: Yes Interpretation(s) My review of EKG: Normal sinus rhythm at a rate of 64, left axis deviation, no definite evidence of acute ischemia. Compared to previous EKG, no significant change. Differential Diagnosis Hypertension, ACS, anxiety, medication noncompliance, other Narrative Course Medical decision making This 67-year-old woman presents to the emergency department complaining of elevated blood pressure readings. Blood pressure readings are high. It's really unclear to me if she is taking what she says she is taking or not. Certainly said she was taking minoxidil and is not. Given the uncertainty, I don't think make any changes to her regimen. I would keep her on the 0.2 clonidine, amlodipine 10 twice a day, enalapril 20 twice a day, metoprolol 100 twice a day. We'll write her a new prescription recommend she follow up with her primary physician. Diagnosis Primary Impression: Uncontrolled hypertension Additional Instructions: Continue metoprolol, enalapril, clonidine, amlodipine as written. Need to follow-up with Dr. Gus Braden's for further management of your elevated blood pressure. Return to the emergency department for any new or worsening symptoms. Med/Other Pt SpecificInfo: Prescription(s) given Scripts Metoprolol Tartrate (Metoprolol Tartrate) 100 Mg Tab 100 MG PO BID, #60 TAB 0 Refills Prov: Chicho Jimenez MD 07/15/17 Enalapril (Enalapril) 20 Mg Tab 20 MG PO BID, #30 TAB 0 Refills Prov: Chicho Jimenez MD 07/15/17 Clonidine (Clonidine) 0.2 Mg Tab 0.2 MG PO TID for Blood Pressure Management, #60 TAB 0 Refills Prov: Chicho Jimenez MD 07/15/17 Amlodipine (Amlodipine) 10 Mg Tab 10 MG PO BID for Blood Pressure Management, #30 TAB 0 Refills Prov: Chicho Jimenez MD 07/15/17 Disposition: 01 DISCHARGE HOME Condition: Stable Chicho Jimenez MD Jul 15, 2017 10:45
[2017-07-15] MEDS ORDERED: TAMS5CAP PO (11:09)
[2017-07-15] MEDS ORDERED: TAMSULOSIN HCL 0.4 MG CAP PO ONE (11:15)
--- NOTE | 2017-07-16 14:44 | EKG ---
Date Performed: 07/15/2017 Time Performed: 10:04:11 PTAGE: 67 years EKG: Sinus rhythm MARKED LEFT AXIS DEVIATION INCOMPLETE RIGHT BUNDLE BRANCH BLOCK POOR R WAVE PROGRESSION POSSIBLE ANT EROSEPTAL HI, AGE UNDETERMINED BUT LARGELY UNCHANGED FROM PRIOR TRACING ABNORMAL ECG PREVIOUS TRACING : 07/14/2017 05.31 DOCTOR: Dimitri Del Rio Interpretating Date/Time 07/16/2017 14:43:29
== END 2017-07-15 11:25 | disposition home or self-care (01) ==
LOC: NEPC 09:03
DX: I10 Essential (primary) hypertension (principal); M06.9 Rheumatoid arthritis, unspecified; K57.92 Diverticulitis of intestine, part unspecified, without perforation or abscess without bleeding; F17.210 Nicotine dependence, cigarettes, uncomplicated; I45.10 Unspecified right bundle-branch block; R94.31 Abnormal electrocardiogram [ECG] [EKG]; Z85.3 Personal history of malignant neoplasm of breast; Z79.899 Other long term (current) drug therapy; Z88.8 Allergy status to other drugs, medicaments and biological substances
CPT/HCPCS: 93005; 96374; 99284; J0360

== ENCOUNTER 2017-08-16 00:56 | Emergency (ER) | payer OTHER ==
[~2017-08-16] VITALS: Ht 152.4 cm; Wt 55.3 kg
[~2017-08-16 00:56] MED LIST changes: +TAMS5CAP PO
[2017-08-16 01:02] VITALS: BP 132/63; PULSE 61; RESP 12; TEMP 97.7; O2SAT 100
[2017-08-16 02:49] LABS: BLOOD, URINE NEG (NEG); GLUCOSE,URINE NEG (NEG); KETONE, URINE NEG (NEG); NITRITE,URINE NEG (NEG); PH, URINE 6.5 (5.0-8.5)
[2017-08-16 02:55] LABS: URINE COLOR STRAW (YELLW/STRAW)
[2017-08-16 02:56] LABS: COMMENT (UR) CATH-CULT NOT IND; CULTURE IF INDICATED CATH CULTURE NOT IND; MUCUS URINE FEW /lpf (OCC); SQUAMOUS EPITHELIAL CELL URINE 0-5 /hpf (0-5); WBC, URINE 0-2 /hpf (0-5)
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
[2017-08-16 03:35] VITALS: BP 128/74
== END 2017-08-16 03:37 | disposition home or self-care (01) ==
LOC: PHED 00:56
DX: Z46.6 Encounter for fitting and adjustment of urinary device (principal); N31.9 Neuromuscular dysfunction of bladder, unspecified; I10 Essential (primary) hypertension; M06.9 Rheumatoid arthritis, unspecified; Z85.3 Personal history of malignant neoplasm of breast; Z72.0 Tobacco use; Z88.1 Allergy status to other antibiotic agents; Z88.8 Allergy status to other drugs, medicaments and biological substances
CPT/HCPCS: 51703; 81001

== ENCOUNTER 2017-09-21 00:32 | Emergency (ER) | payer OTHER ==
[~2017-09-21] VITALS: Ht 152.4 cm; Wt 55.1 kg
[~2017-09-21 00:32] MED LIST changes: -CIPR500T2 PO; -METR-1 PO
[2017-09-21 00:37] VITALS: BP 135/61; PULSE 65; RESP 18; TEMP 98; O2SAT 97
--- NOTE | 2017-09-21 00:53 | PD ---
HPI Chief Complaint: Complaint Time Seen by Provider: 00:46 Travel History International Travel<30 days: No Contact w/Intl Traveler<30days: No Traveled to known affect area: No History of Present Illness HPI The patient is a 67-year-old female with a history of neurogenic bladder. She always has to have a catheter in. Her catheter accidentally fell out at about 9 PM tonight. She does not know how it fell out. She has a 14 English catheter. The balloon did not break. The patient states she was straining because she is "constipated" and the catheter fell out. This has happened before. PFSH Past Medical History Hx Anticoagulant Therapy: No Arthritis: Yes (RA) Autoimmune Disease: No Blood Disorders: No Anxiety: No Depression: No Heart Rhythm Problems: No Cancer: Yes (LEFT BREAST) Cardiovascular Problems: Yes High Cholesterol: No Chemotherapy: Yes (History of ) Chest Pain: Yes Congestive Heart Failure: No Cerebrovascular Accident: No Diabetes: No Diminished Hearing: No Diverticulitis: Yes Endocrine: No Gastrointestinal Disorders: Yes (HEMORRHOIDS, CHRONIC CONSTIPATION, IBS) Genitourinary: Yes (KIDNEY) Headaches: No Hypertension: Yes Immune Disorder: No Musculoskeletal: Yes Neurologic: No Psychiatric: No Respiratory: No Immunizations Current: Yes Radiation Therapy: Yes Thyroid Disease: No Menopausal: Yes : 4 Para: 4 Miscarriage: 0 Tubal Ligation: Yes Past Surgical History Abdominal Surgery: Yes (POLYS REMOVED FROM COLON) AICD: No Cardiac Surgery: No Section: Yes (1984) Ear Surgery: No Endocrine Surgery: No Eye Surgery: No Genitourinary Surgery: Yes (SKILLED NURSING CATH FOR 3 YEARS) Gynecologic Surgery: Yes Hysterectomy: No Joint Replacement: No Neurologic Surgery: No Oral Surgery: No Pacemaker: No Thoracic Surgery: Yes (LEFT BREAST LYMPHNODES REMOVED 2015) Other Surgery: Yes (POLYS REMOVED FROM COLON, PORT PLACEMENT ) Social History Alcohol Use: No Tobacco Use: Yes Substance Use: No Allergies-Medications (Allergen,Severity, Reaction): Coded Allergies: prednisone (Verified Allergy, Severe, Rash, 09/21/17) doxycycline (Unverified Adverse Reaction, Severe, severe nausea and vomiting, 09/21/17) minocycline (Unverified Adverse Reaction, Severe, severe nausea and vomiting, 09/21/17) tigecycline (Unverified Adverse Reaction, Severe, severe nausea and vomiting, 09/21/17) erythromycin base (Unverified Adverse Reaction, Intermediate, Nausea/ Vomiting, 09/21/17) Uncoded Allergies: steroids (Allergy, Unknown, 02/28/16) Reported Meds & Prescriptions Reported Meds & Active Scripts Active Flomax (Tamsulosin HCl) 0.4 Mg Cap 0.4 Mg PO HS Metoprolol Tartrate 100 Mg Tab 100 Mg PO BID Enalapril (Enalapril Maleate) 20 Mg Tab 20 Mg PO BID Clonidine (Clonidine HCl) 0.2 Mg Tab 0.2 Mg PO TID Amlodipine (Amlodipine Besylate) 10 Mg Tab 10 Mg PO BID Bentyl (Dicyclomine HCl) 10 Mg Cap 10 Mg PO TID PRN Miralax (Polyethylene Glycol 3350) 17 Gm Powd.pack 17 Gm PO DAILY Reported Minoxidil 2.5 Mg Tab 2.5 Mg PO DAILY Omeprazole 40 Mg Cap 40 Mg PO DAILY Review of Systems Except as stated in HPI: all other systems reviewed are Neg Physical Exam Narrative GENERAL: Well-nourished, well-developed patient in no apparent distress. SKIN: Focused skin assessment warm/dry. HEAD: Normocephalic. EYES: No scleral icterus. No injection or drainage. NECK: Supple, trachea midline. No JVD or lymphadenopathy. CARDIOVASCULAR: Regular rate and rhythm without murmurs, gallops, or rubs. RESPIRATORY: Breath sounds equal bilaterally. No accessory muscle use. GASTROINTESTINAL: Abdomen soft, with minimal discomfort to direct palpation diffusely, nondistended. No guarding or rebound is present. MUSCULOSKELETAL: No cyanosis, or edema. BACK: Nontender without obvious deformity. No CVA tenderness. Data Data Last Documented VS Vital Signs Date Time Temp Pulse Resp B/P (MAP) Pulse Ox O2 Delivery O2 Flow Rate FiO2 09/21/17 00:37 98.0 65 18 135/61 (85) 97 Orders Orders Urinary Catheter Insert/Apply (09/21/17 00:46) Urinalysis - C+S If Indicated (09/21/17 00:46) Urine Culture (09/21/17 01:20) Labs Laboratory Tests Test 09/21/17 01:20 Urine Color YELLOW Urine Turbidity SLIGHT Urine pH 5.5 Urine Specific [place] 1.015 Urine Protein 30 mg/dL Urine Glucose (UA) NEG mg/dL Urine Ketones NEG mg/dL Urine Occult Blood MOD Urine Nitrite NEG Urine Bilirubin NEG Urine Leukocyte Esterase TRACE Urine RBC 15-19 /hpf Urine WBC 25-49 /hpf Urine WBC Clumps OCC Urine Squamous Epithelial Cells 0-5 /hpf Urine Amorphous Sediment MOD Urine Mucus MOD /lpf Microscopic Urinalysis Comment CULTURE INDICATED MDM Medical Decision Making Medical Screen Exam Complete: Yes Emergency Medical Condition: Yes Medical Record Reviewed: Yes Interpretation(s) The urine shows slight turbidity, moderate occult blood, trace leukocyte esterase with 15-19 red cells and 25-49 white cells and culture is indicated. Differential Diagnosis Cystitis, catheter change, bladder atony Narrative Course The patient has a chronic indwelling catheter because of bladder atony. She developed an apparent cystitis. She'll be given Macrobid twice daily for 10 days. The catheter was changed without incident. She is to follow-up with her primary care physician next week. Diagnosis Primary Impression: Cystitis Additional Impressions: Atonic neurogenic bladder Urinary catheter change required Additional Instructions: The antibiotic is one tablet twice daily for 10 days. Follow-up with your primary care physician this week. Med/Other Pt SpecificInfo: Prescription(s) given Scripts Nitrofurantoin Monohydrate Macrocrystals (Macrobid) 100 Mg Cap 100 MG PO BID for Infection for 10 Days, #20 CAP 0 Refills Prov: Ranjith Rizzo MD 09/21/17 Disposition: 01 DISCHARGE HOME Condition: Stable Ranjith Rizzo MD Sep 21, 2017 00:53
[2017-09-21 01:27] LABS: BILIRUBIN, URINE NEG (NEG); BLOOD, URINE MOD (NEG); GLUCOSE,URINE NEG (NEG); KETONE, URINE NEG (NEG); NITRITE,URINE NEG (NEG); PH, URINE 5.5 (5.0-8.5); URINE LEUKOCYTE ESTERASE TRACE (NEG)
[2017-09-21 01:32] LABS: URINE COLOR YELLOW (YELLW/STRAW)
[2017-09-21 01:33] LABS: MUCUS URINE MOD /lpf (OCC); WHITE BLOOD CELL CLUMPS OCC
[2017-09-21 01:34] LABS: AMORPHOUS SEDIMENT, URINE MOD; RBC, URINE 15-19 /hpf (0-3); SQUAMOUS EPITHELIAL CELL URINE 0-5 /hpf (0-5)
[2017-09-21] MEDS ORDERED: MACR100C2 PO (01:38)
[2017-09-21] MEDS ORDERED: NITROFURANTOIN MONOHYD MACROCR 100 MG CAP PO ONE (01:45)
== END 2017-09-21 01:56 | disposition home or self-care (01) ==
LOC: PHED 00:32
DX: N30.90 Cystitis, unspecified without hematuria (principal); N31.2 Flaccid neuropathic bladder, not elsewhere classified; T83.028A Displacement of other urinary catheter, initial encounter; K59.09 Other constipation; I10 Essential (primary) hypertension; K58.9 Irritable bowel syndrome, unspecified; Z72.0 Tobacco use
CPT/HCPCS: 51702; 81001; 87086